=== PATIENT | male | born 1955 | race Caucasian/White ===

== ENCOUNTER 2017-05-05 21:15 | Emergency (ER) | payer BC ==
[~2017-05-05] VITALS: Ht 185.4 cm; Wt 113.0 kg
[~2017-05-05 21:15] MED LIST: ADVIL MIGRAI200 M1 PO; ALLOPURINOL100 MG PO; ASPIRIN LOW DOS81 M2 PO; AUGMENTIN875TAB PO; BACTRIM DS1 TAB PO; BAYER ASPIRIN325 MG PO; BENAZEPRIL5 M2 PO; CLINDAMYCIN300 M1 PO; CLOPIDOGREL75 MG PO; GLYBURID MCR6 MG OR; GLYBURIDE5 MG PO; IBUPROFEN200 M1 OR; LEVEMIR FL100 UNIT/M SC; LEVEMIR FLEXPEN SC; LIPITOR40 M1 PO; LISINOP/HCTZ1 TA2 PO; LORTAB 5/3255 MG PO; LORTAB5 PO; METFORMIN1000 MG PO; MICRONASE5 MG PO; MITIGARE0.6 MG PO; NAPROSYN500 MG PO; ONDANSETRON HCL4 MG PO; PAROXETINE20 MG PO; ROCEPHIN1 G1 IV; TYLENOL # 31 TA1 PO; WARFARIN6 MG PO; [UNRECOGNIZED DRUG - REMARK]
[2017-05-05] MEDS ORDERED: TOPROL XL PO (22:00)
[2017-05-05] MEDS ORDERED: ACCUPRIL5 MG PO (22:01)
[2017-05-05] MEDS ORDERED: HYDROCHLOROT12.5 MG PO (22:02)
[2017-05-05] MEDS ORDERED: LISINOPRIL20 MG PO (22:02)
[2017-05-05] MEDS ORDERED: AMLODIPINE5 MG PO (22:03)
[2017-05-05] MEDS ORDERED: ALLOPURINOL300 MG PO (22:05)
[2017-05-05] MEDS ORDERED: ATORVASTATIN CA40 MG PO (22:05)
[2017-05-05] MEDS ORDERED: PLAVIX75 MG PO (22:06)
[2017-05-05 22:20] VITALS: BP 146/78
== END 2017-05-05 22:20 | disposition home or self-care (01) | DRG 921 ==
LOC: ED 21:15
DX: L76.21 Postprocedural hemorrhage of skin and subcutaneous tissue following a dermatologic procedure (principal)

== ENCOUNTER 2018-09-29 09:40 | Outpatient (RCR) | payer MEDICARE ==
[2018-09-09 11:38] VITALS: BP 150/76
[2018-09-10 09:03] VITALS: BP 168/74
[2018-09-11 09:33] VITALS: BP 178/84
[2018-09-12 12:43] VITALS: BP 146/69
[2018-09-13 11:25] VITALS: BP 118/61
[2018-09-14 13:47] VITALS: BP 149/80
[2018-09-15 12:06] VITALS: BP 136/83
[2018-09-16 10:55] VITALS: BP 118/74
[2018-09-17 10:00] VITALS: BP 136/76
[2018-09-18 09:47] VITALS: BP 144/61
[2018-09-19 14:04] VITALS: BP 129/72
[2018-09-20 10:13] VITALS: BP 134/64
[2018-09-21 10:58] VITALS: BP 154/77
[2018-09-22 12:19] VITALS: BP 147/78
[2018-09-23 10:48] VITALS: BP 141/75
[2018-09-24 09:50] VITALS: BP 120/64
[2018-09-25 09:34] VITALS: BP 133/69
[2018-09-26 12:49] VITALS: BP 138/68
[2018-09-27 09:35] VITALS: BP 150/65
[2018-09-28 13:45] VITALS: BP 131/74
[~2018-09-29 09:40] MED LIST changes: +ACCUPRIL5 MG PO; +ALLOPURINOL300 MG PO; +AMLODIPINE5 MG PO; +ATORVASTATIN CA40 MG PO; +HYDROCHLOROT12.5 MG PO; +LISINOPRIL20 MG PO; +PLAVIX75 MG PO; +TOPROL XL PO
[2018-09-29 14:47] VITALS: BP 136/72
== END 2018-09-29 10:00 | disposition home or self-care (01) ==
LOC: INF 09:40
PROVIDERS: ATTEND Internal Medicine
DX: E11.621 Type 2 diabetes mellitus with foot ulcer (principal)

== ENCOUNTER → 2018-10-05 | Outpatient (REF) | payer MEDICARE ==
[2018-10-05 09:33] LABS: IMMATURE GRANULOCYTES 0.3 % (0.0-5.0); MEAN CELL VOLUME 83.4 fL CALC (80.0-100.0); MEAN CORPUSCULAR HGB CONC 34.8 g/L CALC (32.0-36.0); NEUT# 5.11 thou/uL (1.82-7.42); RED BLOOD COUNT 4.82 mill/uL (4.70-6.10); RED CELL DISTRI WIDTH 12.8 % (11.5-15.5)
[2018-10-05 09:38] LABS: HEMATOCRIT 40.2 % (39.0-50.0)
== END | disposition home or self-care (01) ==
LOC: INF 09:00
PROVIDERS: ATTEND Internal Medicine Infectious Disease
DX: M86.672 Other chronic osteomyelitis, left ankle and foot (principal); B95.61 Methicillin susceptible Staphylococcus aureus infection as the cause of diseases classified elsewhere

== ENCOUNTER 2019-07-24 17:20 | Emergency (ER) | payer MEDICARE, MEDICAID ==
[~2019-07-24] VITALS: Ht 182.9 cm; Wt 90.0 kg
[2019-07-24 18:11] LABS: IMMATURE GRANULOCYTES 0.7 % (0.0-5.0); MEAN CORPUSCULAR HGB 27.6 pG CALC (26.0-32.0); MEAN CORPUSCULAR HGB CONC 32.8 g/L CALC (32.0-36.0); NEUT# 7.3 thou/uL (1.82-7.42); RED BLOOD COUNT 2.94 mill/uL (4.70-6.10); RED CELL DISTRI WIDTH 13.5 % (11.5-15.5)
[2019-07-24 18:25] LABS: HEMATOCRIT 24.7 % (39.0-50.0); HEMOGLOBIN 8.1 g/dl (14.0-18.0)
[2019-07-24 18:37] LABS: ALBUMIN 3.6 g/dL (3.2-5.0); TOTAL PROTEIN 6.7 g/dL (6.3-8.2)
[2019-07-24 18:39] LABS: BILIRUBIN, TOTAL 0.9 mg/dL (0.0-1.4); POTASSIUM 4.9 mmol/l (3.5-5.1)
[2019-07-24 18:40] LABS: CREATININE 5.4 mg/dL (0.7-1.3)
[2019-07-24 20:32] VITALS: BP 103/63
== END 2019-07-24 20:32 | disposition short-term general hospital (02) ==
LOC: ED 17:20
PROVIDERS: Family Medicine
DX: A41.9 Sepsis, unspecified organism (principal); R65.20 Severe sepsis without septic shock; N17.9 Acute kidney failure, unspecified; J18.9 Pneumonia, unspecified organism; E11.9 Type 2 diabetes mellitus without complications; Z79.4 Long term (current) use of insulin
CPT/HCPCS: J1644

== ENCOUNTER 2019-08-04 | Emergency (ER) | payer MEDICARE ==
[2019-08-04 18:38] LABS: HEMATOCRIT 27.4 % (39.0-50.0); HEMOGLOBIN 8.6 g/dl (14.0-18.0); IMMATURE GRANULOCYTES 0.8 % (0.0-5.0); MEAN CELL VOLUME 85.4 fL CALC (80.0-100.0); MEAN CORPUSCULAR HGB 26.8 pG CALC (26.0-32.0); MEAN CORPUSCULAR HGB CONC 31.4 g/L CALC (32.0-36.0); NEUT# 8.77 thou/uL (1.82-7.42); RED BLOOD COUNT 3.21 mill/uL (4.70-6.10); RED CELL DISTRI WIDTH 16.3 % (11.5-15.5)
[2019-08-04 18:46] LABS: ALBUMIN 3.8 g/dL (3.2-5.0); TOTAL PROTEIN 6.9 g/dL (6.3-8.2)
[2019-08-04 18:53] LABS: BILIRUBIN, TOTAL 1.5 mg/dL (0.0-1.4); CREATININE 3.1 mg/dL (0.7-1.3); D-DIMER 1.9 mg/L (0.19-0.60); INTERNATIONAL NORMALIZED RATIO 1.2 RATIO (0.7-1.3)
[2019-08-04] MEDS ORDERED: ALLOPURINOL100 MG PO (19:49)
[2019-08-04] MEDS ORDERED: PANTOPRAZOLE SO40 M1 PO (19:50)
[2019-08-04] MEDS ORDERED: KAPSPARGO SPRIN25 MG PO (19:55)
[2019-08-04] MEDS ORDERED: ASPIRIN 8181 MG PO (19:56)
[2019-08-04] MEDS ORDERED: LIPITOR40 M1 PO (19:56)
[2019-08-04] MEDS ORDERED: LASIX 40 MG TAB40 MG PO (20:02)
[2019-08-04] MEDS ORDERED: PLAVIX75 MG PO (20:02)
[2019-08-04] MEDS ORDERED: PAROXETINE20 MG PO (20:03)
[2019-08-04 20:25] LABS: URINE BILIRUBIN - DIPSTICK NEGATIVE (NEGATIVE); URINE BLOOD DIPSTICK TRACE-INTACT (NEGATIVE); URINE COLOR YELLOW; URINE GLUCOSE - DIPSTICK NEGATIVE (NEGATIVE); URINE KETONE NEGATIVE (NEGATIVE); URINE LEUK ESTERASE NEGATIVE (NEGATIVE); URINE NITRITE - DIPSTICK NEGATIVE (Negative); URINE PH 5.5 (4.5-8.0); URINE PROTEIN - DIPSTICK 100 mg/dL (NEG-TRACE); URINE SPECIFIC GRAVITY 1.025; URINE UROBILINOGEN - DIPSTICK 0.2 E.U./dL (0.2)
[2019-08-04 20:40] LABS: URINE RBC 0-2 RBC/hpf (0-5)
== END 2019-08-04 22:05 ==
DX: I22.2 Subsequent non-ST elevation (NSTEMI) myocardial infarction (principal); I21.4 Non-ST elevation (NSTEMI) myocardial infarction; J18.9 Pneumonia, unspecified organism; N17.9 Acute kidney failure, unspecified; E11.9 Type 2 diabetes mellitus without complications; Z95.5 Presence of coronary angioplasty implant and graft; Z91.19 Patient's noncompliance with other medical treatment and regimen
CPT/HCPCS: J1644

== ENCOUNTER 2019-08-26 | Emergency (ER) | payer MEDICARE ==
[~2019-08-26] MED LIST changes: +ASPIRIN 8181 MG PO; +KAPSPARGO SPRIN25 MG PO; +LASIX 40 MG TAB40 MG PO; +PANTOPRAZOLE SO40 M1 PO
[2019-08-26 01:23] LABS: HEMATOCRIT 25.1 % (39.0-50.0); HEMOGLOBIN 7.7 g/dl (14.0-18.0); IMMATURE GRANULOCYTES 0.3 % (0.0-5.0); MEAN CORPUSCULAR HGB 27.9 pG CALC (26.0-32.0); MEAN CORPUSCULAR HGB CONC 30.7 g/L CALC (32.0-36.0); NEUT# 3.87 thou/uL (1.82-7.42); RED BLOOD COUNT 2.76 mill/uL (4.70-6.10)
[2019-08-26 01:28] LABS: MEAN CELL VOLUME 90.9 fL CALC (80.0-100.0)
[2019-08-26 01:40] LABS: ALBUMIN 3.3 g/dL (3.2-5.0); BILIRUBIN, TOTAL 0.9 mg/dL (0.0-1.4); CREATININE 2.7 mg/dL (0.7-1.3); POTASSIUM 3.6 mmol/l (3.5-5.1); TOTAL PROTEIN 5.7 g/dL (6.3-8.2)
== END 2019-08-26 01:59 | disposition home or self-care (01) ==
PROVIDERS: Family Medicine
DX: T38.3X1A Poisoning by insulin and oral hypoglycemic [antidiabetic] drugs, accidental (unintentional), initial encounter (principal); E11.649 Type 2 diabetes mellitus with hypoglycemia without coma; D64.9 Anemia, unspecified; E11.621 Type 2 diabetes mellitus with foot ulcer; L97.519 Non-pressure chronic ulcer of other part of right foot with unspecified severity; I25.2 Old myocardial infarction; Z89.431 Acquired absence of right foot; Z79.4 Long term (current) use of insulin

== ENCOUNTER 2019-08-29 12:33 | Inpatient (IN) | payer MEDICARE, MEDICAID ==
[~2019-08-29] VITALS: Ht 182.9 cm; Wt 109.8 kg
--- NOTE | 2019-08-29 12:40 | NUR ---
PT TO ROOM PER EMS
[2019-08-29 13:17] LABS: URINE BILIRUBIN - DIPSTICK NEGATIVE (NEGATIVE); URINE BLOOD DIPSTICK TRACE-INTACT (NEGATIVE); URINE COLOR YELLOW; URINE GLUCOSE - DIPSTICK NEGATIVE (NEGATIVE); URINE KETONE NEGATIVE (NEGATIVE); URINE LEUK ESTERASE NEGATIVE (NEGATIVE); URINE NITRITE - DIPSTICK NEGATIVE (Negative); URINE PH 5.5 (4.5-8.0); URINE PROTEIN - DIPSTICK 100 mg/dL (NEG-TRACE); URINE UROBILINOGEN - DIPSTICK 0.2 E.U./dL (0.2)
[2019-08-29 13:21] LABS: URINE RBC 0-2 RBC/hpf (0-5); URINE WBC 0-2 WBC/hpf (0-5)
[2019-08-29 13:24] LABS: HEMATOCRIT 25.4 % (39.0-50.0); HEMOGLOBIN 7.7 g/dl (14.0-18.0); IMMATURE GRANULOCYTES 0.4 % (0.0-5.0); MEAN CELL VOLUME 92.4 fL CALC (80.0-100.0); MEAN CORPUSCULAR HGB CONC 30.3 g/L CALC (32.0-36.0); NEUT# 3.34 thou/uL (1.82-7.42); RED BLOOD COUNT 2.75 mill/uL (4.70-6.10); RED CELL DISTRI WIDTH 18.6 % (11.5-15.5)
[2019-08-29 13:32] LABS: ALBUMIN 3.5 g/dL (3.2-5.0); ALKALINE PHOSPHATASE 87 u/l (38-126); ANION GAP 16 (6-22 (CALC)); BILIRUBIN, TOTAL 1.2 mg/dL (0.0-1.4); BUN 51 mg/dL (8-23); BUN/CREATININE RATIO 22 (12-20 (CALC)); CARBON DIOXIDE 19 mmol/l (22-30); CHLORIDE 110 mmol/l (95-108); CREATININE 2.4 mg/dL (0.7-1.3); GFR 27 ML/MIN (>=60 (CALC)); GFR FOR AFR.AMER. 33 ML/MIN (>=60 (CALC)); POTASSIUM 4.3 mmol/l (3.5-5.1); SGOT/AST 32 u/l (19-48); SODIUM 141 mmol/l (137-146); TOTAL PROTEIN 6.3 g/dL (6.3-8.2)
--- NOTE | 2019-08-29 13:40 | NUR ---
PT RESTING ON STRETCHER; NO S/S OF DISTRESS NOTED; VSS; O2 NC IN PLACE; PT ADVISED OF WAIT TIME; WILL CONTINUE TO MONTIOR
[2019-08-29 14:05] LABS: INTERNATIONAL NORMALIZED RATIO 1.2 RATIO (0.7-1.3)
--- NOTE | 2019-08-29 14:40 | NUR ---
PT MEDICATED PER MAR FOR COUGH; DR REINA AT BEDSIDE; ADVISED OF POC AND CONTINUED WAIT TIME
--- NOTE | 2019-08-29 15:30 | NUR ---
PT ASSITED WITH URINAL, 250 ML OF CLEAR YELLOW URINE NOTED; MONITORING DEVICES IN PLACE; VSS; WILL CONTINUE TO MONITOR
[2019-08-29] MEDS ORDERED: BUMETANIDE2 MG PO (16:25)
[2019-08-29] MEDS ORDERED: TOPROL XL25 MG PO (16:25)
[2019-08-29] MEDS ORDERED: CARVEDILOL6.25 MG PO (16:25)
--- NOTE | 2019-08-29 16:30 | NUR ---
PT ASSISTED WITH URINAL AT THIS TIME; 200ML OF CLEAR YELLOW URINE AT THIS TIME; VSS; ADVISED OF CONTINUED WAIT TIME; WILL CONTINUE TO MONITOR
--- NOTE | 2019-08-29 17:30 | NUR ---
Admission Note Report Given to: MELANY PHILLIP Transported by: Wheelchair X Stretcher Transported with: X Nurse Transporter X Patent IV X O2 X Mid Wife Location: ICU X MS2
[2019-08-29 18:14] VITALS: BP 123/58
--- NOTE | 2019-08-29 18:16 | NUR ---
REPORT RECEIVED FROM JARAD IN ED, PT TRANSPORTED TO UNIT VIA STRETCHER BY ED STAFF, AMBULATED TO STANDING SCALE THEN TO BED WHERE HE WAS SETTLED. ALERT AND ORIENTED X 3, DENIES PAIN AT THIS TIME, TELE MONITOR IN PLACE, O2 @ 2L IN PLACE. ORIENTED TO ROOM AND CALL DANIELS, WILL CONTINUE TO MONITOR.
--- NOTE | 2019-08-29 18:50 | NUR ---
REPORT RECEIVED FROM MELANY PHILLIP. PT RESTING IN BED FAMILY AT BEDSIDE. NO S.S OF DISTRESS AT THIS TIME. WILL CONTINUE TO MONITOR.
[2019-08-29 19:02] VITALS: BP 146/66
--- NOTE | 2019-08-29 20:15 | NUR ---
PT RESTING IN BED. ALERT AND ORIENTED. PT RESPIRATIONS LABORED ON O2 @ 2L VIA NC. LUNG SOUND DIMINISHED. PEDAL PULSES ARE WEAK. PT DENIES ANY PAIN OR DISCOMFORT AT THIS TIME. TELE IN PLACE. SAFETY PRECAUTIONS IN PLACE. WILL CONTINUE MONITOR.
--- NOTE | 2019-08-30 00:05 | NUR ---
PT RESTING IN BED. NO S/S OF DISTRESS AT THIS TIME. TELE IN PLACE. CALL DANIELS WITHIN REACH. WILL CONTINUE TO MONITOR.
[2019-08-30 03:40] VITALS: BP 109/55
--- NOTE | 2019-08-30 04:36 | NUR ---
PT RESTING IN BED. NO S/S OF DISTRESS AT THIS TIME. SAFETY PRECAUTIONS IN PLACE. WILL CONTINUE TO MONITOR.
[2019-08-30 06:16] LABS: HEMATOCRIT 26.4 % (39.0-50.0); IMMATURE GRANULOCYTES 0.4 % (0.0-5.0); MEAN CELL VOLUME 91.7 fL CALC (80.0-100.0); MEAN CORPUSCULAR HGB 27.8 pG CALC (26.0-32.0); MEAN CORPUSCULAR HGB CONC 30.3 g/L CALC (32.0-36.0); NEUT# 3.59 thou/uL (1.82-7.42); RED BLOOD COUNT 2.88 mill/uL (4.70-6.10); RED CELL DISTRI WIDTH 18.6 % (11.5-15.5)
[2019-08-30 06:24] LABS: CREATININE 2.3 mg/dL (0.7-1.3); MAGNESIUM 1.8 mg/dL (1.6-2.3); POTASSIUM 4.2 mmol/l (3.5-5.1)
--- NOTE | 2019-08-30 07:00 | NUR ---
SHIFT CHANGE REPORT, PT AWAKE ALERT AND ORIENTED, ASSISTED WITH BRP THEN SAT UP AT BEDSIDE, STATED HE IS FEELEIN AND BREATHING MUCH BETTER THIS AM AND IS READY FOR MEAL, O2 @ 2L VIA NC IN PLACE, TELE MONITOR IN PLACE, CALL DANIELS IN REACH.
[2019-08-30 07:58] VITALS: BP 139/82
[2019-08-30 11:20] VITALS: BP 137/70
--- NOTE | 2019-08-30 12:00 | NUR ---
DR HOBSON ROUNDED, REMOVED DRESSING FROM LEFT FOOT, CLEANED WOUND AND REDRESSED, WROTE ORDERS.
--- NOTE | 2019-08-30 15:19 | NUR ---
S: CAMPOS SAM is a 64 M who presents with diabetic foot ulcer and SOB . He has a history of T2DM, gout, HTN, and PAOD. All medications in patient's chart were reviewed. O: VS: BP: 137/70 mmHg, P: 87 beats/min, RR: 20 breaths/min, T: 98.3 F W: 109 kg, HT: 72 in, Scr: 2.3 mg/dL, CrCl: 40 ml/min A: Blood culture is pending. Stool culture for ESBL surveillance is pending. hx of ESBL in past years P: Patient is on azithromycin 500 mg IV Q24H and cefepime 1 gm IV Q12H. Vancomycin ordered for pharmacy to dose. Start Vancomycin 1500 mg IV Q24H. Vancomycin trough is drawn before the 4th dose on 09/02/19 at 15:30. Vancomycin goal trough is between 10-15 mcg/ml. Pharmacy will follow and or advise on antibiotics use as needed.
--- NOTE | 2019-08-30 16:00 | NUR ---
PT DOWN FOR PROCEDURES AFTER BEING INFORMED, THEN BACK TO UNIT AND SETTLED IN BED, ALL NEEDS ADDRESSED.
[2019-08-30 17:05] VITALS: BP 134/67
--- NOTE | 2019-08-30 18:43 | NUR ---
REPORT RECEIVED FORM ALEXANDER IN ED, PT TRANSPORTED TO UNIT VIA STRETCHER AND TRANSFERRED TO BED WITH MAX ASSIST OR 3. ALERT AND ORIENTED X 3, DENIES DISCOMFORT, ORIENTED TO ROOM AND CALL DANIELS. PT ARRIVED ON UNIT @ 1456 TRANSPORTED BY ED STAFF. SUPRAPUBIC CATHETER IN PLACE WITH CLOUDY SEDIMENTED URINE, COLOSTOMY BAG IN PLACE TO LEFT ABD. TELE MONITOR IN PLACE, WILL CONTINUE TO MONITOR.
[2019-08-30 18:56] VITALS: BP 139/81
--- NOTE | 2019-08-30 19:10 | NUR ---
REPORT RECEIVED FROMMARJAN RN. PT RESTING IN BED. NO S.S OF DISTRESS AT THIS TIME.
--- NOTE | 2019-08-30 20:21 | NUR ---
PT ALERT AND ORIENTED. RESPIRATIONS EVEN AND UNLABORED. LUNGS SOUND CLEAR. PEDAL PULSES WEAK. TELE IN PLACE. PT DENIES ANY NEED AT THIS TIME. SAFETY PRECAUTIONS IN PLACE. WILL CONTINUE TO MONITOR.
[2019-08-30 23:13] VITALS: BP 139/79
--- NOTE | 2019-08-31 00:05 | NUR ---
PT RESTING IN BED RESPIRATIONS EVEN AND UNLABORED. NO S/S OF DISTRESS AT THIS TIME. SAFETY PRECAUTIONS IN PLACE. WILL CONTINUE TO MONITOR.
--- NOTE | 2019-08-31 04:00 | NUR ---
PT ASSISTED INTO BED AND REPOSISTED. COVERED PT WITH BLANKETS PER REQUEST. TELE IN PLACE. WILL CONTINUE TO MONITOR.
[2019-08-31 04:43] VITALS: BP 146/89
[2019-08-31 05:25] LABS: HEMATOCRIT 25.8 % (39.0-50.0); HEMOGLOBIN 7.8 g/dl (14.0-18.0); IMMATURE GRANULOCYTES 0.2 % (0.0-5.0); MEAN CELL VOLUME 91.8 fL CALC (80.0-100.0); MEAN CORPUSCULAR HGB 27.8 pG CALC (26.0-32.0); MEAN CORPUSCULAR HGB CONC 30.2 g/L CALC (32.0-36.0); NEUT# 2.74 thou/uL (1.82-7.42); RED BLOOD COUNT 2.81 mill/uL (4.70-6.10); RED CELL DISTRI WIDTH 18.2 % (11.5-15.5)
[2019-08-31 05:50] LABS: CREATININE 2.3 mg/dL (0.7-1.3); MAGNESIUM 1.8 mg/dL (1.6-2.3)
[2019-08-31 08:18] VITALS: BP 108/47
--- NOTE | 2019-08-31 08:57 | NUR ---
CALLED DR. RAHMAN OFFICE SPOKE TO LETICIA GAVE INFORMATION REGARDING DR. BEARD CONSULTATION. STATED SHE WILL GIVE HIM THE MESSAGE AND COME SEE THE PATIENT.
--- NOTE | 2019-08-31 09:34 | NUR ---
DR. HOBSON IN TO SEE PT; PLAN OF CARE DISCUSSED; ORDERS RECEIVED
[2019-08-31 11:10] VITALS: BP 110/55
--- NOTE | 2019-08-31 11:14 | NUR ---
PHYSICAL THERAPY IN WITH PT
--- NOTE | 2019-08-31 11:59 | NUR ---
DR. CORONEL IN TO SEE PT; PLAN OF CARE DISCUSSED; CALL DANIELS WITHIN REACH; WILL CONTINUE TO MONITOR.
--- NOTE | 2019-08-31 13:30 | NUR ---
PT WENT FOR MRI; UNABLE TO BE PERFORMED D/T PT UNABLE TO LAY FLAT; MD NOTIFIED; WILL ATTEMPT AGAIN IN MORNING AND PREMEDICATE PT FOR PAIN; WILL CONTINUE TO MONITOR.
[2019-08-31 14:40] VITALS: BP 123/54
[2019-08-31] MEDS ORDERED: LEVOTHYROXINE75 MCG PO (14:53)
[2019-08-31] MEDS ORDERED: LEVEMIR FL100 UNIT/M SC (14:54)
[2019-08-31] MEDS ORDERED: PLAVIX75 MG PO (16:00)
--- NOTE | 2019-08-31 16:02 | NUR ---
PT RESTING WITH EYES CLOSED; NO S/SX OF DISTRESS NOTED; CALL DANIELS WITHIN REACH; WILL CONTINUE TO MONITOR.
--- NOTE | 2019-08-31 17:55 | NUR ---
PT ASSISTED WITH DINNER SET UP; NO COMPLAINTS OR CONCERNS VOICED; CALL DANIELS WITHIN REACH; WILL CONTINUE TO MONITOR.
[2019-08-31 19:03] VITALS: BP 130/69
[2019-08-31 23:47] VITALS: BP 125/80
[2019-09-01 03:29] VITALS: BP 125/75
[2019-09-01 05:58] LABS: HEMATOCRIT 26.6 % (39.0-50.0); HEMOGLOBIN 8.1 g/dl (14.0-18.0); IMMATURE GRANULOCYTES 0.4 % (0.0-5.0); MEAN CELL VOLUME 91.7 fL CALC (80.0-100.0); MEAN CORPUSCULAR HGB 27.9 pG CALC (26.0-32.0); MEAN CORPUSCULAR HGB CONC 30.5 g/L CALC (32.0-36.0); NEUT# 3.47 thou/uL (1.82-7.42); RED BLOOD COUNT 2.9 mill/uL (4.70-6.10); RED CELL DISTRI WIDTH 18.3 % (11.5-15.5)
[2019-09-01 06:08] LABS: CREATININE 2.4 mg/dL (0.7-1.3); MAGNESIUM 1.9 mg/dL (1.6-2.3); POTASSIUM 3.9 mmol/l (3.5-5.1)
--- NOTE | 2019-09-01 06:09 | NUR ---
PT CONT ON 2L O2 NC, PT HAS AUDIBLE CONGESTION AND NON-PRODUCTIVE COUGH. PT RECEIVING LASIX BID. 22G RIGHT POSTERIER FOREARM IV REMAINS PATENT AND INTACT. PT STATES HAVING NO PAIN, 0/10 ON PAIN SCALE.
--- NOTE | 2019-09-01 08:00 | NUR ---
PT SITTING ON SIDE OF BED. DENIES PAIN. REPORTING OF CONCERNS ENCOURAGED. CALL LIGHT REVIEWED AND IN REACH. FALL PRECAUTIONS REINFORCED. O2 @ 2L VIA NC. PLAN OF CARE DISCUSSED. PT ALERT AND ORIENTED. #22 LFA SALINE LOCK, NO REDNESS/SWELLING.
[2019-09-01 09:56] VITALS: BP 120/53
[2019-09-01 11:33] VITALS: BP 119/68
--- NOTE | 2019-09-01 12:49 | NUR ---
AMPAC SCORE TODAY: 19 POINTS; PT WILL BENEFIT FROM [facility] FOR GAIT TRAINING AND CONDITIONING MR. GASCA WAS SEEN THIS MORNING FOR GT. HE WAS INDEP ON ALL FUNCTIONAL ACTIVITIES WITH LITTLE TO NO DIFFICULTY. HE HAD A SCOOTER THAT HE USED IN AMB IN THE HALLWAY AT LEAST 60 FT X 2. NO ADVERSE REACTIONS WAS NOTED OR REPORTED AT THE END OF TX.
--- NOTE | 2019-09-01 13:30 | NUR ---
DR. COBB IN TO SEE PT. PLAN OF CARE UPDATED.
[2019-09-01 15:35] VITALS: BP 118/66
--- NOTE | 2019-09-01 17:00 | NUR ---
DR. SOTO IN TO SEE PT. AT THIS TIME.
--- NOTE | 2019-09-01 19:55 | NUR ---
PT RESTING IN BED. RESPIRATION EVEN AND UNLABORED ON O2 @ 2L VIA NC. LUNGS SOUND DIMINISHED. PEDAL PULSES WEAK. PT DENIES ANY PAIN OR DISCOMFORT AT THIS TIME. TELE IN PLACE. WILL CONTINUE TO MONITOR.
[2019-09-01 20:00] VITALS: BP 111/64
--- NOTE | 2019-09-01 20:52 | NUR ---
DRESSING CHANGED PER ORDER. PT TOLERATED WELL. ASSISTED PT WITH REPOSITIONING IN BED. URINAL EMPITED AT THIS TIME.
[2019-09-02] VITALS: BP 115/62
--- NOTE | 2019-09-02 00:15 | NUR ---
PT PROVIDED WITH SALTINE CRACKERS AND GINGERALE PER REQUEST.
[2019-09-02 04:00] VITALS: BP 136/80
--- NOTE | 2019-09-02 04:16 | NUR ---
PT RESTING IN BED. RESPIRATIONS EVEN AND UNLABORED ON O2 @ 2L VIA NC. SAFETY PRECAUTIONS IN PLACE. WILL CONTINUE TO MONITOR.
[2019-09-02 05:10] LABS: HEMATOCRIT 25.3 % (39.0-50.0); HEMOGLOBIN 7.6 g/dl (14.0-18.0); IMMATURE GRANULOCYTES 0.4 % (0.0-5.0); MEAN CORPUSCULAR HGB 27.3 pG CALC (26.0-32.0); NEUT# 3.37 thou/uL (1.82-7.42); RED BLOOD COUNT 2.78 mill/uL (4.70-6.10); RED CELL DISTRI WIDTH 17.8 % (11.5-15.5)
[2019-09-02 05:35] LABS: CREATININE 2.3 mg/dL (0.7-1.3); POTASSIUM 4.1 mmol/l (3.5-5.1)
[2019-09-02 08:00] VITALS: BP 113/56
--- NOTE | 2019-09-02 10:00 | NUR ---
PT ALERT AND ORIENTED X 3. LUNGS CLEAR, 2 LPM. NO DISTRESS HE SITS UP IN THE BED.
[2019-09-02 16:41] VITALS: BP 104/58
[2019-09-02 18:00] LABS: C-REACTIVE PROTEIN 3.5 mg/dL (0-0.9); CREATININE 2.3 mg/dL (0.7-1.3)
--- NOTE | 2019-09-02 18:28 | NUR ---
PT SITTING UP IN THE BED, FEET DANGLING. NO CHANGE IN STATUS, NO COMPLAINTS HEARD.
[2019-09-02 19:00] VITALS: BP 112/56
--- NOTE | 2019-09-02 19:10 | NUR ---
REPORT RECEIVED FROM MELANY MAC. PT RESTING IN BED. NO S/S OF DISTRESS AT THIS TIME. WILL CONITNUE TO MONITOR.
--- NOTE | 2019-09-02 21:45 | NUR ---
PT RESTING IN BED. RESPIRATIONS EVEN AND UNLABORED ON O2 @ 2L VIA NC. LUNGS SOUND DIMINISHED. PEDAL PULSES WEAK. PT DENIES ANY PAIN OR DISCOMFORT AT THIS TIME. SAFETY PRECAUTIONS IN PLACE. WILL CONTNIUE TO MONITOR.
[2019-09-03] VITALS: BP 110/50
--- NOTE | 2019-09-03 00:15 | NUR ---
PT RESTING BED RESPIRATIONS EVEN AND UNLABORED ON O2 @ 2L VIA NC. NO S/S OF DISTRESS AT THIS TIME. WILL CONTINEU TO MONTIOR.
[2019-09-03 04:00] VITALS: BP 152/87
--- NOTE | 2019-09-03 04:30 | NUR ---
PT NOSE BLEEDING. PT PROVIDED WITH WASH CLOTH. WILL CONTINUE TO MONITOR.
[2019-09-03 05:42] LABS: HEMOGLOBIN 7.5 g/dl (14.0-18.0); MEAN CELL VOLUME 92.6 fL CALC (80.0-100.0); MEAN CORPUSCULAR HGB 27.8 pG CALC (26.0-32.0); RED BLOOD COUNT 2.7 mill/uL (4.70-6.10); RED CELL DISTRI WIDTH 17.4 % (11.5-15.5)
[2019-09-03 06:01] LABS: CREATININE 2.4 mg/dL (0.7-1.3)
[2019-09-03 07:45] VITALS: BP 117/67
--- NOTE | 2019-09-03 09:51 | NUR ---
PT SITS UP IN BED, DANGLING FEET OFF BED. PT IS ALERT AND ORIENTED X 3. LUNGS WITH CRACKLES TO LEFT BASE, OTHERWISE CLEAR, 2 LPM NC. PT REQUESTING STOOL SOFTENER PER NO BM SINCE ARRIVAL. VSS.
--- NOTE | 2019-09-03 13:09 | NUR ---
PT REMAINS BEFORE, SITTING UP IN THE BED, SOMETIMES NAPPING, NO EVIDENCE OF DISTRESS.
[2019-09-03 15:00] VITALS: BP 100/59
--- NOTE | 2019-09-03 16:27 | NUR ---
PT SEEN RECLINING IN BED, EYES CLOSED, NO DISTRESS NOTED.
--- NOTE | 2019-09-03 19:05 | NUR ---
REPORT RECEIVED FROM MELANY MAC. PT RESTING IN BED. NO S/S OF DISTRESS AT THIS TIME. SAFETY PRECAUTIONS IN PLACE. WILL CONTINUE TO MONITOR.
[2019-09-03 20:22] VITALS: BP 128/74
--- NOTE | 2019-09-03 22:30 | NUR ---
PT RESTING IN BED, ALERT AND ORIENTED. RESPIRATIONS EVEN AND UNLABORED ON O2 @ 2L VIA NC. PEDAL PULSES WEAK. PT DENIES ANY PAIN OR DISCOMFORT. #22 RFA PATENT AND APPEARS HEALTHY. PT ASSISTED TO THE BATHROOM PER REQUEST. PT ENCOURAGED TO CALL FOR ASSISTANCE WHEN FINISHED.
--- NOTE | 2019-09-04 00:10 | NUR ---
PT ASSISTED INTO BED AND COVERED WITH BLANKETS PER REQUEST. SAFETY PRECAUTIONS IN PLACE. WILL CONTINUE TO MONTIOR.
[2019-09-04 03:07] VITALS: BP 129/75
--- NOTE | 2019-09-04 05:16 | NUR ---
PT RESTING IN BED ON LEFT SIDE APPEARS TO BE SLEEPING. NO S/S OF DISTRESS AT THIS TIME.
[2019-09-04 05:29] LABS: HEMATOCRIT 25.5 % (39.0-50.0); HEMOGLOBIN 7.7 g/dl (14.0-18.0); MEAN CELL VOLUME 90.7 fL CALC (80.0-100.0); MEAN CORPUSCULAR HGB 27.4 pG CALC (26.0-32.0); MEAN CORPUSCULAR HGB CONC 30.2 g/L CALC (32.0-36.0); RED BLOOD COUNT 2.81 mill/uL (4.70-6.10); RED CELL DISTRI WIDTH 17.2 % (11.5-15.5)
[2019-09-04 05:33] LABS: CREATININE 2.4 mg/dL (0.7-1.3); MAGNESIUM 2.1 mg/dL (1.6-2.3); POTASSIUM 4.2 mmol/l (3.5-5.1)
[2019-09-04 09:34] VITALS: BP 111/60
--- NOTE | 2019-09-04 09:34 | NUR ---
Pt seen for treatment this am. He was resting in L side lying. He reported doing ex in bed and sitting over edge of bed. Standing balance with walker practiced, but pt only able to stand approx 1 min before requesting to sit. Transfers to and from scooter with CGA and reminder not to Wt bear on L forefoot. Pt having difficulty due to habit of being NWB on R for a long time and does not automatically position self of NWB on L. Scoot 2x 60' with CGA and 2L [address] 02 sats 92% and desat to 88% after scoot use with 92% after rest. AMPAC unchanged.
[2019-09-04 09:54] VITALS: BP 111/60
[2019-09-04] MEDS ORDERED: LEVAQUIN750 MG PO (14:46)
[2019-09-04] MEDS ORDERED: LEXAPRO10 MG PO (14:46)
[2019-09-04] MEDS ORDERED: LORTAB5 PO (15:37)
--- NOTE | 2019-09-04 18:36 | NUR ---
PATIENT WAS DISCHARGE TO THE [facility]. PATIENT WAS ACCOMPANIED BY THE REHAB EMPLOYEE. PATIENT DENIED OF HAVING PAIN OR DISCOMFORT AT THIS TIME. DISCHARGE INSTRUCTION WAS GIVEN TO PATIENT AND REHAB STAFF.
== END 2019-09-04 18:41 | DRG 291 ==
LOC: ED 12:33 → ED-I 15:00 → ED 15:09 → MS2 15:10
PROVIDERS: Internal Medicine Infectious Disease; Nurse Practitioner Family; ADMIT Internal Medicine; ATTEND Internal Medicine
DX: I13.0 Hypertensive heart and chronic kidney disease with heart failure and stage 1 through stage 4 chronic kidney disease, or unspecified chronic kidney disease (principal); J18.9 Pneumonia, unspecified organism; J96.01 Acute respiratory failure with hypoxia; T25.332A Burn of third degree of left toe(s) (nail), initial encounter; N17.9 Acute kidney failure, unspecified; L97.528 Non-pressure chronic ulcer of other part of left foot with other specified severity; L03.116 Cellulitis of left lower limb; J44.0 Chronic obstructive pulmonary disease with (acute) lower respiratory infection; N18.4 Chronic kidney disease, stage 4 (severe); I50.9 Heart failure, unspecified; E11.22 Type 2 diabetes mellitus with diabetic chronic kidney disease; I25.10 Atherosclerotic heart disease of native coronary artery without angina pectoris; E11.42 Type 2 diabetes mellitus with diabetic polyneuropathy; E11.65 Type 2 diabetes mellitus with hyperglycemia; E11.621 Type 2 diabetes mellitus with foot ulcer; D63.1 Anemia in chronic kidney disease; F40.240 Claustrophobia; M10.9 Gout, unspecified; G31.84 Mild cognitive impairment of uncertain or unknown etiology; F32.9 Major depressive disorder, single episode, unspecified; I25.2 Old myocardial infarction; B96.5 Pseudomonas (aeruginosa) (mallei) (pseudomallei) as the cause of diseases classified elsewhere; W29.2XXA Contact with other powered household machinery, initial encounter; Z89.431 Acquired absence of right foot; Z87.891 Personal history of nicotine dependence; Z87.01 Personal history of pneumonia (recurrent); Z95.5 Presence of coronary angioplasty implant and graft; Z95.820 Peripheral vascular angioplasty status with implants and grafts; Z23 Encounter for immunization
CPT/HCPCS: G0378; J0692; J3370

== ENCOUNTER 2019-10-16 12:54 | Inpatient (IN) | payer MEDICARE, MEDICAID ==
[~2019-10-16] VITALS: Ht 185.4 cm; Wt 104.3 kg
[~2019-10-16 12:54] MED LIST changes: +BUMETANIDE2 MG PO; +CARVEDILOL6.25 MG PO; +LEVAQUIN750 MG PO; +LEVOTHYROXINE75 MCG PO; +LEXAPRO10 MG PO; +TOPROL XL25 MG PO
--- NOTE | 2019-10-16 12:55 | NUR ---
PT ARRIVES VIA EMS IN NO DISTRESS, SKIN VERY PALE. PT C/O "PT SAID MY SATS WERE LOW". PT DENIES SOB,CP OR COUGH
--- NOTE | 2019-10-16 13:10 | NUR ---
ABG DRAWN AND PATIENT PLACED ON O2 AT 2L/MIN VIA NASAL CANNULA BY RT.
[2019-10-16 13:56] LABS: HEMATOCRIT 24.2 % (39.0-50.0); HEMOGLOBIN 7.5 g/dl (14.0-18.0); IMMATURE GRANULOCYTES 0.8 % (0.0-5.0); MEAN CELL VOLUME 88.3 fL CALC (80.0-100.0); MEAN CORPUSCULAR HGB 27.4 pG CALC (26.0-32.0); NEUT# 6.68 thou/uL (1.82-7.42); RED BLOOD COUNT 2.74 mill/uL (4.70-6.10); RED CELL DISTRI WIDTH 16.9 % (11.5-15.5)
--- NOTE | 2019-10-16 14:05 | NUR ---
PATIENT ASSISTED TO BSC STATES BEING CONSTIPATED LAST BM YESTERADAY. CALL LIGHT WITHIN REACH. WILL CONTINUE TO MONITOR.
[2019-10-16 14:25] LABS: ALBUMIN 3.5 g/dL (3.2-5.0); ANION GAP 14 (6-22 (CALC)); BUN 71 mg/dL (8-23); BUN/CREATININE RATIO 22 (12-20 (CALC)); CARBON DIOXIDE 26 mmol/l (22-30); CHLORIDE 101 mmol/l (95-108); CREATININE 3.2 mg/dL (0.7-1.3); GFR 20 ML/MIN (>=60 (CALC)); GFR FOR AFR.AMER. 24 ML/MIN (>=60 (CALC)); POTASSIUM 3.6 mmol/l (3.5-5.1); SODIUM 137 mmol/l (137-146); TOTAL PROTEIN 6.1 g/dL (6.3-8.2)
[2019-10-16 14:30] LABS: ALKALINE PHOSPHATASE 212 u/l (38-126); BILIRUBIN, TOTAL 2.1 mg/dL (0.0-1.4); SGOT/AST 482 u/l (19-48)
[2019-10-16 14:33] LABS: D-DIMER 2.29 mg/L (0.19-0.60); INTERNATIONAL NORMALIZED RATIO 1.4 RATIO (0.7-1.3); PROTHROMBIN TIME 14.2 SECONDS (9.0-12.5)
--- NOTE | 2019-10-16 14:55 | NUR ---
MEDICATED WITH IV LASIX ORDERED. PT HAD SMAL FIRM FORMED STOOL X1.PT IN NO DISTRESS
--- NOTE | 2019-10-16 15:29 | NUR ---
REPORT GIVEN TO MELANY KNUTSON.
--- NOTE | 2019-10-16 15:38 | NUR ---
PT ARRIVED TO UNIT VIA WHEELCHAIR WITH ER STAFF. ALERT AND ORIENTED. AMBULATED TO BED WITH STEADY GAIT; REPORTS USING A CANE AT HOME. DENIES PAIN. PLEASANT AND JOKING WITH STAFF. RESPIRATIONS EVEN AND UNLABORED ON OXYGEN 2L VIA NC. LUNGS DIMINISHED. ORIENTED TO ROOM AND CALL LIGHT SYSTEM. PLAN OF CARE DISCUSSED INCLUDING ORDER FOR BLOOD TRANSFUSION. PT ENCOURAGED TO VERBALIZE CONCERNS. STATES UNDERSTANDING AND AGREES TO SIGN CONSENT FORM. SAFETY MEASURES IN PLACE. CALL LIGHT WITHIN REACH.
[2019-10-16 15:40] VITALS: BP 127/77
--- NOTE | 2019-10-16 15:45 | NUR ---
PT TRANSPORTED TO AR ON TELE VIA WC IN N ODISTRESS
--- NOTE | 2019-10-16 16:42 | NUR ---
BLOOD TRANSFUSION STARTED AT THIS TIME. CONSENT OBTAINED AND SENT TO LAB. PT SITTING UP ON EDGE OF BED EATING SNACK. BLOOD SUGAR 87.
[2019-10-16 16:58] VITALS: BP 134/75
--- NOTE | 2019-10-16 17:25 | NUR ---
PT TOLERATING TRANSFUSION WELL; VSS. RESTING IN SEMI FOWLERS. UP TO BSC FOR SMALL HARD BOWEL MOVEMENT. PHOTO TAKEN OF DIABETIC ULCER TO LEFT GREAT TOE AND PLACED IN CHART.
[2019-10-16 17:42] LABS: URINE BILIRUBIN - DIPSTICK NEGATIVE (NEGATIVE); URINE BLOOD DIPSTICK TRACE-INTACT (NEGATIVE); URINE COLOR YELLOW; URINE GLUCOSE - DIPSTICK NEGATIVE (NEGATIVE); URINE KETONE NEGATIVE (NEGATIVE); URINE LEUK ESTERASE NEGATIVE (NEGATIVE); URINE NITRITE - DIPSTICK NEGATIVE (Negative); URINE PH 5.5 (4.5-8.0); URINE PROTEIN - DIPSTICK 100 mg/dL (NEG-TRACE); URINE UROBILINOGEN - DIPSTICK 0.2 E.U./dL (0.2)
[2019-10-16 17:45] VITALS: BP 132/75
--- NOTE | 2019-10-16 17:53 | NUR ---
URINE AND STOOL SPECIMEN COLLECTED AND SENT TO LAB.
[2019-10-16 18:10] LABS: URINE RBC 0-2 RBC/hpf (0-5); URINE WBC 0-2 WBC/hpf (0-5)
--- NOTE | 2019-10-16 18:13 | NUR ---
LAB AT BEDSIDE. MILK OF MAG GIVEN FOR CONSTIPATION. RBC'S CONTINUE TO INFUSE WITHOUT DIFFICULTY. NO S/S OF TRANSFUSION REACTION. PT PLEASANT AND TALKATIVE.
[2019-10-16 18:55] VITALS: BP 136/80
--- NOTE | 2019-10-16 19:00 | NUR ---
RECEIVED REPORT FROM NURSE EAMON PATIENT APPEARS TO BE SLEEPING WITH EYES CLOSED, REMAINS ON O2 WITH EVEN UNLABORED BREATHING CALL LIGHT AT REACH.
[2019-10-16 19:14] VITALS: BP 137/72
--- NOTE | 2019-10-16 21:00 | NUR ---
PATIENT ALERT AND ORIENTED ABLE TO MAKE NEEDS KNOWN, WITH SALINE LOCK ON LH AND SALINE LOCK ON LAC PATENT FLUSHES WELL, REMAINS ON TELE SR 72, DENIES PAIN AT THIS TIME, PATIENT DIABETIC ULCER ON LEFT GREAT TOE WITH DRESSING IN PLACE,REMAINS ON O2 @ 2LPM VIA NC WITH EVEN UNLABORED BREATHING PATIENT ASSISTED IN REPOSITIONING CALL LIGHT AT REACH.
[2019-10-16 23:35] VITALS: BP 121/72
--- NOTE | 2019-10-16 23:47 | NUR ---
PATIENT ASSISTED TO BEDSIDE COMMODE AND ASSISTED BACK IN BED.
[2019-10-17 03:32] VITALS: BP 99/65
--- NOTE | 2019-10-17 05:08 | NUR ---
PATIENT ASSISTED TO BEDSIDE COMODE, DENIES PAIN OR DISCOMFORTS AT THIS TIME, REMAINS ON O2 @ 2LPM VIA NC CALL LIGHT AT REACH.
[2019-10-17 05:56] LABS: HEMATOCRIT 26.6 % (39.0-50.0); HEMOGLOBIN 8.3 g/dl (14.0-18.0); IMMATURE GRANULOCYTES 0.4 % (0.0-5.0); MEAN CELL VOLUME 88.4 fL CALC (80.0-100.0); MEAN CORPUSCULAR HGB 27.6 pG CALC (26.0-32.0); MEAN CORPUSCULAR HGB CONC 31.2 g/L CALC (32.0-36.0); NEUT# 5.95 thou/uL (1.82-7.42); RED BLOOD COUNT 3.01 mill/uL (4.70-6.10); RED CELL DISTRI WIDTH 16.7 % (11.5-15.5)
[2019-10-17 06:07] LABS: ALBUMIN 3.3 g/dL (3.2-5.0); BILIRUBIN, TOTAL 1.8 mg/dL (0.0-1.4); CREATININE 3.2 mg/dL (0.7-1.3); TOTAL PROTEIN 5.8 g/dL (6.3-8.2)
[2019-10-17 08:07] VITALS: BP 116/68
[2019-10-17 10:30] VITALS: BP 108/64
--- NOTE | 2019-10-17 13:19 | NUR ---
CALLED AND SPOKE TO EDGARD AND LET HER KNOW ABOUT A CONSULTATION FOR DR. HOBSON FOR THIS PT.
[2019-10-17 14:40] VITALS: BP 128/74
--- NOTE | 2019-10-17 15:14 | NUR ---
LEFT GREAT TOE WOUND CULTURE ACHIEVED AND SENT TO LAB. WOUND CLEANSED WITH 3 IODINE SWABS. DRESSED WITH 4X4 AND KERLIX PER ORDER. PT TOLERATED WELL AND HAD NO PAIN WHEN CULTURE ACQUIRED. SUPPORT GIVEN.
--- NOTE | 2019-10-17 19:00 | NUR ---
RECEIVED REPORT FROM DAY NURSE PATIENT CURRENTLY RESTING IN CHAIR, FOOT ELEVATED, REMAINS ON O2 @ 2LPM VIA NC EVEN UNLABORED BREATHING CALL LIGHT AT REACH.
[2019-10-17 19:10] VITALS: BP 125/70
--- NOTE | 2019-10-17 21:00 | NUR ---
PATIENT ALERFT ORIENTED ABLE TO MAKE NEEDS KNOWN, SALINE LOCK ON LAC PATENT AND FLUSHES WELL, DENIES PAIN OR DISCOMFORT REMAINS ON TELE, ON O2 @ 2LPM VIA NC, EVEN UNLABORED BREATHING CALL LIOGHT AT REACH.
[2019-10-17 23:59] VITALS: BP 116/61
--- NOTE | 2019-10-18 | NUR ---
PATIENT APPREARS TO BE SLEEPING WITH EYES CLOSED, WITH EVEN UNLABORED BREATHING CALL LIGHT AT REACH
--- NOTE | 2019-10-18 04:21 | NUR ---
PATIENT REQUESTED SNACK AT THIS TIME, CURRENTLY SITTING IN BED WATCHING TV WITH EVEN UNLABORED BREATHING.
[2019-10-18 04:22] VITALS: BP 126/72
[2019-10-18 04:57] LABS: HEMATOCRIT 26.2 % (39.0-50.0); HEMOGLOBIN 8.1 g/dl (14.0-18.0); MEAN CELL VOLUME 88.2 fL CALC (80.0-100.0); MEAN CORPUSCULAR HGB 27.3 pG CALC (26.0-32.0); MEAN CORPUSCULAR HGB CONC 30.9 g/L CALC (32.0-36.0); RED BLOOD COUNT 2.97 mill/uL (4.70-6.10); RED CELL DISTRI WIDTH 16.8 % (11.5-15.5)
[2019-10-18 05:19] LABS: CREATININE 3.4 mg/dL (0.7-1.3); MAGNESIUM 2.4 mg/dL (1.6-2.3); POTASSIUM 4.1 mmol/l (3.5-5.1)
[2019-10-18 08:00] VITALS: BP 108/59
[2019-10-18 11:37] VITALS: BP 97/53
[2019-10-18 16:00] VITALS: BP 103/53
--- NOTE | 2019-10-18 18:21 | NUR ---
PT COMPLAINT OF LEFT NOSTRIL NOSE BLEED. SLOW BLEED NOTED. HUMIDITY ADDED TO OXYGEN, ICE PACK AND PRESSURE TO L NOSTRIL. WILL MONITOR.
--- NOTE | 2019-10-18 19:15 | NUR ---
REPORT FROM RAMOS MOSLEY. PT SITTING UP AT BEDSIDE. ALERT AND ORIENTED. PT CONSTANTLY WIPING NOSE WITH WASH CLOTH WITH ACTIVE NOSE BLEED REPORTED FROM DAY NURSE. AGRICULTURAL EXTENSION SPECIALIST ENCOURAGED PT TO HOLD PRESSURE AND STOP WIPING NOSE AT THIS TIME. IV SITE APPEARS HEALTHY. VACUUM TESTER CANS IN PLACE. DISCUSSED POC. PT VERBALIZED UNDERSTANDING. CALL LIGHT WITHIN REACH. WILL CONTINUE TO MONITOR.
[2019-10-18 19:18] VITALS: BP 118/64
--- NOTE | 2019-10-18 20:03 | NUR ---
PT NO LONGER HAS NOSE BLEED. PT NOT CURRENTLY WEARING O2. SATS 95% RA. NO APPARENT RESPIRATORY DISTRESS NOTED. PT DENIES ANY FEELING OF SOB. WILL CONTINUE TO MONITOR.
[2019-10-18 23:32] VITALS: BP 105/66
--- NOTE | 2019-10-19 01:11 | NUR ---
ASSISTED PT UP TO USE URINAL. PT VOIDED 400ML. ASSISTED BACK TO BED. SNACK PROVIDED UPON REQUEST. NO APPARENT DISTRESS NOTED. CALL LIGHT WITHIN REACH. WILL CONTINUE TO MONITOR.
[2019-10-19 04:00] VITALS: BP 120/71
--- NOTE | 2019-10-19 04:30 | NUR ---
COMPLETE BED BATH PROVIDED WITH PT ASSIST. LINENS CHANGED. PT SITTING UP IN CHAIR AT BEDSIDE. CALL LIGHT WITHIN REACH. WILL CONTINUE TO MONITOR.
[2019-10-19 05:16] LABS: HEMATOCRIT 26.1 % (39.0-50.0); MEAN CELL VOLUME 88.5 fL CALC (80.0-100.0); MEAN CORPUSCULAR HGB 27.1 pG CALC (26.0-32.0); MEAN CORPUSCULAR HGB CONC 30.7 g/L CALC (32.0-36.0); RED BLOOD COUNT 2.95 mill/uL (4.70-6.10); RED CELL DISTRI WIDTH 17.2 % (11.5-15.5)
[2019-10-19 05:41] LABS: ALBUMIN 3.3 g/dL (3.2-5.0); BILIRUBIN, TOTAL 1.6 mg/dL (0.0-1.4); CREATININE 3.1 mg/dL (0.7-1.3); MAGNESIUM 2.5 mg/dL (1.6-2.3); POTASSIUM 4.3 mmol/l (3.5-5.1); TOTAL PROTEIN 5.9 g/dL (6.3-8.2)
[2019-10-19 08:00] VITALS: BP 105/54; BP 106/61
--- NOTE | 2019-10-19 09:00 | NUR ---
PT SEEN AWAKE, ALERT, ORIENTED X 3. LUNGS CLEAR, RA. RIGHT FOOT DRESSING CHANGED PER OTHER LOOSE AND UNRAVELING. WOUND IS DRY, SCABBED OVER, NO DRAINAGE NOTED.
[2019-10-19 11:39] VITALS: BP 141/75
--- NOTE | 2019-10-19 13:00 | NUR ---
PT WITHOUT COMPLAINT HE RESTS IN THE BED, NO EVIDENCE OF DISTRESS. PT TO BSC WITHOUT RESULTS.
[2019-10-19 15:05] VITALS: BP 106/59
--- NOTE | 2019-10-19 16:53 | NUR ---
PT REMAINS BEFORE, RESTS IN THE BED IN NO DISTRESS. NO COMPLAINTS HEARD.
--- NOTE | 2019-10-19 19:05 | NUR ---
REPORT FROM BUBBA RN. PT SITTING UP AT BEDSIDE. ALERT AND ORIENTED. DISCUSSED IV SITE DUE TO BE CHANGED. DISCUSSED POC. PT VERBALIZED UNDERSTANDING. DRESSING TO LEFT FOOT, CDI. CALL LIGHT WITHIN REACH. WILL CONTINUE TO MONITOR.
[2019-10-19 19:30] VITALS: BP 137/83
--- NOTE | 2019-10-19 20:43 | NUR ---
PT MEDICATED ORDERED. NEW IV STARTED AT THIS TIME, #22 LFA X1 ATTEMPT. PT TOLERATED WELL. IV SITE D/C WITH CATH INTACT.
[2019-10-20] VITALS (10 sets, daily range): BP systolic 94–136; BP diastolic 48–92
--- NOTE | 2019-10-20 01:01 | NUR ---
PT MEDICATED FOR RIGHT KNEE PAIN 7-10. ASSISTED PT WITH REPOSITIONING IN BED. DENIES ANY OTHER WANTS OR NEEDS. CALL LIGHT WITHIN REACH. WILL CONTINUE TO MONITOR.
[2019-10-20 05:20] LABS: HEMATOCRIT 24.3 % (39.0-50.0); HEMOGLOBIN 7.4 g/dl (14.0-18.0); MEAN CORPUSCULAR HGB 26.8 pG CALC (26.0-32.0); MEAN CORPUSCULAR HGB CONC 30.5 g/L CALC (32.0-36.0); RED BLOOD COUNT 2.76 mill/uL (4.70-6.10); RED CELL DISTRI WIDTH 17.4 % (11.5-15.5)
[2019-10-20 05:41] LABS: ALBUMIN 2.9 g/dL (3.2-5.0); CREATININE 2.9 mg/dL (0.7-1.3); POTASSIUM 4.2 mmol/l (3.5-5.1)
[2019-10-20 05:45] LABS: CREATININE 2.9 mg/dL (0.7-1.3); MAGNESIUM 2.5 mg/dL (1.6-2.3); POTASSIUM 4.2 mmol/l (3.5-5.1)
--- NOTE | 2019-10-20 05:54 | NUR ---
PT C/O PAIN IN RIGHT KNEE 8-10. DISCUSSED WITH PT TO EARLY FOR LORTAB. PT MEDICATED WITH PRN TYLENOL AT TTHIS TIME AND ASSISTED WITH REPOSITIONING. PT DENIES ANY OTHER WANT OR NEEDS, ADITYA LIGHT WITHIN REACH. WILL CONTINUE TO MONITOR.
--- NOTE | 2019-10-20 09:00 | NUR ---
PT SEEN AWAKE, ALERT, ORIENTED X 3, PERHAPS OVERQUIET THIS MORNING. LUNGS CLEAR, 2 LPM NC. PT UP TO BSC WITH SMALL RESULT. NO SHORTNESS OF BREATH NOTED.
--- NOTE | 2019-10-20 13:00 | NUR ---
PT SEEN BY DR COBB TODAY, WILL RECEIVE ONE UNIT OF BLOOD AND POSSIBLE DISCHARGE TO HOME TOMORROW. PT SEEN SITTING UP DANGLING OFTEN, THEN RESTS IN THE BED OTHERWISE. NAD.
--- NOTE | 2019-10-20 16:35 | NUR ---
BLOOD TRANSFUSION HAS BEGUN, PT TOLERATES WELL WITHOUT ADVERSE REACTION.
--- NOTE | 2019-10-20 18:33 | NUR ---
DRESSING CHANGED TO LEFT GREAT TOE/FOOT. BLOOD TRANSFUSION COMPLETES WITHOUT ADVERSE REACTION.
--- NOTE | 2019-10-20 19:10 | NUR ---
REPORT FROM BUBBA RN. PT RESTING IN BED. ALERT AND ORIENTED. NO APPARENT DISTRESS NOTED. IV SITE APPEARS HEALTHY. GENERAL CARGO CLERK IN PLACE. 02 @ 2L/M VIA NC. DISCUSSED POC. PT VERBALIZED UNDERSTANDING. DRESSING TO LEFT FOOT, CDI. CALL LIGHT WITHIN REACH. WILL CONTINUE TO MONITOR.
--- NOTE | 2019-10-20 20:05 | NUR ---
PT MEDICATED FOR LEFT SHOULDER PAIN WITH PRN LORTAB. PT ALSO ASSISTED TO BSC AT THIS TIME. CALL LIGHT WITHIN REACH. PT INSTRUCTED TO CALL WHEN FINISHED.
--- NOTE | 2019-10-20 23:59 | NUR ---
CUP OF ICE PROVIDED UPON REQUEST. PT SITTING UP AT BEDSIDE BRUSHING TEETH. PT DENIES ANY OTHER WANTS OR NEEDS. CALL LIGHT WITHIN REACH. WILL CONTINUE TO MONITOR.
--- NOTE | 2019-10-21 03:02 | NUR ---
PT RESTING IN BED WITH EYES CLOSED. NO APPARENT DISTRESS NOTED. CALL LIGHT WITHIN REACH. WILL CONTINUE TO MONITOR.
[2019-10-21 04:15] VITALS: BP 116/64
[2019-10-21 05:54] LABS: HEMATOCRIT 28.1 % (39.0-50.0); HEMOGLOBIN 8.8 g/dl (14.0-18.0); MEAN CELL VOLUME 89.8 fL CALC (80.0-100.0); MEAN CORPUSCULAR HGB 28.1 pG CALC (26.0-32.0); MEAN CORPUSCULAR HGB CONC 31.3 g/L CALC (32.0-36.0); RED BLOOD COUNT 3.13 mill/uL (4.70-6.10); RED CELL DISTRI WIDTH 17.2 % (11.5-15.5)
[2019-10-21 06:12] LABS: ALBUMIN 3.1 g/dL (3.2-5.0); BILIRUBIN, TOTAL 1.4 mg/dL (0.0-1.4); CREATININE 2.6 mg/dL (0.7-1.3); POTASSIUM 4.5 mmol/l (3.5-5.1); TOTAL PROTEIN 5.6 g/dL (6.3-8.2)
[2019-10-21 07:15] VITALS: BP 109/58
--- NOTE | 2019-10-21 08:00 | NUR ---
PATIENT A/OX4, NO S/S RESP DISTRESS, PATIENT ON O2 VIA NC, PATIENT NO C/O PAIN, PATIENT HEART RHYTHM IN NORMAL SINUS, PATIENT ONE PERSON ASSIST TO COMMODE, CALL LIGHT WITHIN REACH
[2019-10-21 10:42] VITALS: BP 119/53
--- NOTE | 2019-10-21 12:00 | NUR ---
PATIENT SITTING UP ON COMMODE, PATIENT ATTEMPTING TO HAVE BOWEL MOVEMENT, NO S/S RESP DISTRESS, NO C/O PAIN, PATIENT HEART RHYTHM IN NORMAL SINUS
[2019-10-21 15:26] VITALS: BP 141/77
--- NOTE | 2019-10-21 16:45 | NUR ---
PATIENT ON O2 VIA NC, PATIENT O2 SATS DECREASE TO 90%, NOTIFIED DR. OBRIEN, PATIENT O2 INCREASE TO 2L TO 3L, IS GIVEN TO PATIENT, WILL CONTINUE TO MONITOR PATIENT
--- NOTE | 2019-10-21 18:00 | NUR ---
PATIENT A/OX4, NO S/S RESP DISTRESS, PATIENT ON O2 VIA NC, PATIENT NO C/O PAIN, PATIENT REQUEST PRN LAXATIVE, PATIENT LAST BOWEL MOVEMENT 10/20/19, PATIENT IS ONE PERSON ASSIST TO COMMODE, PATIENT WOUND TO RIGHT FOOT CHANGED PER MD ORDERS
[2019-10-21 19:49] VITALS: BP 145/78
[2019-10-21 23:59] VITALS: BP 116/60
--- NOTE | 2019-10-22 | NUR ---
PATIENT RESTING IN BED-VOIDING QS NETO RUINE IN URINAL. O2 REAPPLIED-FOUND OFF PATIENT WITH O2 SATS IN LOW 80'S. INSTRUCTED PATIENT TO LEAVE O2 VIA NASAL CANNULA IN PLACE. TELE MONITOR IN PLACE. DRESSING TO RIGHTFOOT CDI AT THIS TIME. ENCOURAGED PATIENT TO KEEP FOOT ELEVATED ON PILLOW. SAFETY PRECAUTIONS REINFORCED. CALL LIGHT IN REACH. WILL CONT TO MONITOR.
[2019-10-22 00:08] VITALS: BP 132/77
[2019-10-22 04:42] VITALS: BP 141/77
[2019-10-22 06:10] LABS: ALBUMIN 3.1 g/dL (3.2-5.0); CREATININE 2.6 mg/dL (0.7-1.3); POTASSIUM 4.7 mmol/l (3.5-5.1)
--- NOTE | 2019-10-22 07:30 | NUR ---
PATIENT A/OX4, NO C/O PAIN, NO S/S RESP DISTRESS, PATIENT ON O2 VIA NC, PATIENT DRESSING TO LEFT FOOT CHANGED, PATIENT HEART RHYTHM IN NORMAL SINUS, WILL CONTINUE TO MONITOR PATIENT, CALL LIGHT WITHIN REACH
[2019-10-22 07:50] VITALS: BP 148/73
[2019-10-22 10:45] VITALS: BP 126/69
--- NOTE | 2019-10-22 13:00 | NUR ---
PATIENT DRY DRESSING FELL OFF, CHANGE PATIENT DRESSING TO LEFT FOOT SECOND TIME, PATIENT A/OX4, NO C/O PAIN, NO S/S RESP DISTRESS, PATIENT O2 VIA NC, PATIENT HAD LARGE BOWEL MOVEMENT, WILL CONTINUE TO MONITOR PATIENT, CALL LIGHT WITHIN REACH
[2019-10-22 15:36] VITALS: BP 119/64
--- NOTE | 2019-10-22 17:30 | NUR ---
PATIENT DIABETIC CONTINUE BLOOD GLUCOSE CONTINUE TO BE ABOVE 300, PATIENT CURRENT BLOOD GLUCOSE 369, NOTIFIED DR. OBRIEN
[2019-10-22 18:59] VITALS: BP 119/69
--- NOTE | 2019-10-22 20:00 | NUR ---
PATIENT SITTING ON THE SIDE OF THE BED. AWAKE ALERT AND ORIENTEDX3. TELE MONITOR REMOVED-WAS D/C'ED. IV SITE TO LEFT FOREARM INTACT. DRESSING TO LEFT GREAT TOE INTACT. MEDICATED FOR GENERALIZED PAIN WITH LORTAB ORDERED. VOIDING QS YELLOW URINE IN URINAL. PATIENT REFUSED SURFAK AT THIS TIME. SAFETY PRECAUTIONS REINFORCED. CALL LIGHT IN REACH. WILL CONT TO MONITOR.
--- NOTE | 2019-10-23 | NUR ---
PATIENT RESTING INBED-POSITIONED ON LEFT SIDE WITH EYES CLSOED. RESPS ARE EVEN ANDUNLABORED. CALL LIGHT IN REACH. WILL CONT TO MONITOR.
[2019-10-23 00:08] VITALS: BP 132/77
--- NOTE | 2019-10-23 03:00 | NUR ---
PATIENT RESTING IN BED-C/O NAUSEA-PROVIDED WITH DIET GINGERALE. VOIDING QS NETO URINE IN URINAL. CALL LIGHT IN REACH. WILL CONT TOO MONITOR.
[2019-10-23 03:59] VITALS: BP 133/78
[2019-10-23 06:45] LABS: HEMATOCRIT 30.3 % (39.0-50.0); HEMOGLOBIN 9.2 g/dl (14.0-18.0); MEAN CELL VOLUME 89.4 fL CALC (80.0-100.0); MEAN CORPUSCULAR HGB 27.1 pG CALC (26.0-32.0); MEAN CORPUSCULAR HGB CONC 30.4 g/L CALC (32.0-36.0); RED BLOOD COUNT 3.39 mill/uL (4.70-6.10); RED CELL DISTRI WIDTH 17.3 % (11.5-15.5)
[2019-10-23 07:10] LABS: CREATININE 2.4 mg/dL (0.7-1.3)
--- NOTE | 2019-10-23 07:10 | NUR ---
REPORT RECEIVED FROM MELANY GOLDEN;PT RESTING AT BEDSIDE;INTRODUCED SELF TO TP AND POC DISCUSSED;RESPIRATIONS EVEN AND UNLABORED ON O2 @ 2L VIA NC;PT DENIES ANY CURRENT PAIN OR DISCOMFORTS;PT ENCOURAGED TO CALL FOR ASSISTANCE IF NEEDED;FALL PRECAUTIONS IN PLACE WITH BED IN THE LOWEST POSITION AND CALL LIGHT IN REACH;WILL CONTINUE TO MONITOR
--- NOTE | 2019-10-23 07:37 | NUR ---
CRITICAL BUN OF 82 OBTAINED AT THIS TIME. NOTIFIED AND NO NEW ORDERS RECEIVED.
[2019-10-23 09:12] VITALS: BP 123/66
--- NOTE | 2019-10-23 09:15 | NUR ---
PT RESTING IN SEMI FOWLERS POSITION,A&O X3;VS OBTAINED AND ASSESSMENT COMPLETED;PT DENIES ANY CURRENT PAIN OR DISCOMFORTS,PAIN SCALE AND REPORTING EDUCATED;RESPIRATIONS EVEN AND UNLABORED ON O2 @ 2L VIA NC;ABDOMEN DISTENDED/SOFT ON PALPATION AND ACTIVE IN ALL 4 QUADRANTS;WEAK PEDAL PULSES;DRESSING TO RT GREAT TOE CDI;#22G TO LFA FLUSHED AND PATENT,SITE APPEARS HEALTHY;ACCUCHECK 315,PT WAS COVERED WITH SLIDING SCALE NOVOLOG;PT DENIES ANY ADDITIONAL NEEDS AND IS ENCOURAGED TO CALL FOR ASSISTANCE IF NEEDED;FALL PRECAUTIONS IN PLACE WITH CALL LIGHT IN REACH;WILL CONTINUE TO MONITOR
[2019-10-23] MEDS ORDERED: ALLOPURINOL100 MG PO (11:55)
[2019-10-23] MEDS ORDERED: MEDDOSEPAK PO (11:55)
[2019-10-23] MEDS ORDERED: FERROUS SULFAT325 MG PO (11:55)
[2019-10-23 12:00] VITALS: BP 140/71
--- NOTE | 2019-10-23 12:12 | NUR ---
PT RESTING IN SEMI FOWLERS POSITION;RESPIRATIONS EVEN AND UNLABORED ON O2 @ 2L VIA NC;PT DENIES ANY CURRENT PAIN OR DISCOMFORT;ACCUCHECK 337, PT COVERED WITH SLIDING SCALE NOVOLOG PER ORDER;PT DENIES ANY ADDITIONAL NEEDS AND IS ENCOURAGED TO CALL FOR ASSISTANCE IF NEEDED;CALL LIGHT IN REACH;WILL CONTINUE TO MONITOR
--- NOTE | 2019-10-23 14:05 | NUR ---
ALL DISCHARGE INSTRUCTIONS PROVIDED AT THIS TIME;RX FOR MEDROL PACK,IRON AND ALLUPORONIAL PROVIDED;PT INSTRUCTED TO MONITOR BP AND BLOOD SUGAR;HOME O2 WAS PROVIDED BY [facility];IV SITE REMOVED WITH CATHETER INTACT;PT DENIES ANY ADDITIONAL QUESTIONS OR NEEDS;WHEELCHAIR TO BE PROVIDED FOR D/C HOME;FRIEND TO TRANSPORT PT HOME.
--- NOTE | 2019-10-23 14:19 | NUR ---
Discharge instructions given. Patient verbalizes understanding of same. Discharged in stable condition via Wheelchair to Home with *Other. All belongings sent with pt. PT TO LOBBY IN STABLE CONDITION VIA WHEELCHAIR ACCOMPANIED BY [facility] FOR D/C HOME.FRIEND TO TRANSPORT PT HME.
== END 2019-10-23 14:16 | disposition home health service (06) | DRG 291 ==
LOC: ED 12:54 → ED-I 14:45 → ED 15:09 → MS2 15:10 → ED-I 15:10 → MS2 15:39
PROVIDERS: Internal Medicine Nephrology; Nurse Practitioner Family; ADMIT Internal Medicine; ATTEND Internal Medicine
PROC: 30233N1 Transfusion of Nonautologous Red Blood Cells into Peripheral Vein, Percutaneous Approach (ICD-10-PCS; principal; 2019-10-16)
PROC: 30233N1 Transfusion of Nonautologous Red Blood Cells into Peripheral Vein, Percutaneous Approach (ICD-10-PCS; 2019-10-20)
DX: I13.0 Hypertensive heart and chronic kidney disease with heart failure and stage 1 through stage 4 chronic kidney disease, or unspecified chronic kidney disease (principal); I50.23 Acute on chronic systolic (congestive) heart failure; J96.21 Acute and chronic respiratory failure with hypoxia; N17.9 Acute kidney failure, unspecified; N18.4 Chronic kidney disease, stage 4 (severe); E87.1 Hypo-osmolality and hyponatremia; E87.2 Acidosis; L03.116 Cellulitis of left lower limb; E11.22 Type 2 diabetes mellitus with diabetic chronic kidney disease; E11.42 Type 2 diabetes mellitus with diabetic polyneuropathy; E11.51 Type 2 diabetes mellitus with diabetic peripheral angiopathy without gangrene; E11.621 Type 2 diabetes mellitus with foot ulcer; E11.65 Type 2 diabetes mellitus with hyperglycemia; I25.10 Atherosclerotic heart disease of native coronary artery without angina pectoris; J44.9 Chronic obstructive pulmonary disease, unspecified; E78.5 Hyperlipidemia, unspecified; D63.1 Anemia in chronic kidney disease; E77.8 Other disorders of glycoprotein metabolism; L97.529 Non-pressure chronic ulcer of other part of left foot with unspecified severity; M10.061 Idiopathic gout, right knee; K59.00 Constipation, unspecified; F32.9 Major depressive disorder, single episode, unspecified; R74.0 Nonspecific elevation of levels of transaminase and lactic acid dehydrogenase [LDH]; I25.2 Old myocardial infarction; Z99.81 Dependence on supplemental oxygen; Z95.5 Presence of coronary angioplasty implant and graft; Z87.891 Personal history of nicotine dependence; Z79.4 Long term (current) use of insulin; Z95.820 Peripheral vascular angioplasty status with implants and grafts; Z89.431 Acquired absence of right foot; Z86.73 Personal history of transient ischemic attack (TIA), and cerebral infarction without residual deficits
CPT/HCPCS: G0378; P9016; Q5106 EC

== ENCOUNTER 2019-11-02 | Emergency (ER) | payer MEDICARE, MEDICAID ==
[~2019-11-02] MED LIST changes: +FERROUS SULFAT325 MG PO; +MEDDOSEPAK PO
[2019-11-02 20:55] LABS: HEMOGLOBIN 9.7 g/dl (14.0-18.0); IMMATURE GRANULOCYTES 0.6 % (0.0-5.0); MEAN CELL VOLUME 87.4 fL CALC (80.0-100.0); MEAN CORPUSCULAR HGB 26.5 pG CALC (26.0-32.0); MEAN CORPUSCULAR HGB CONC 30.3 g/dL CAL (32.0-36.0); NEUT# 6.7 thou/uL (1.82-7.42); RED BLOOD COUNT 3.66 mill/uL (4.70-6.10); RED CELL DISTRI WIDTH 16.2 % (11.5-15.5)
[2019-11-02 21:11] LABS: BILIRUBIN, TOTAL 1.2 mg/dL (0.0-1.4); CREATININE 1.8 mg/dL (0.7-1.3); POTASSIUM 3.9 mmol/l (3.5-5.1); TOTAL PROTEIN 5.5 g/dL (6.3-8.2)
[2019-11-02] MEDS ORDERED: TYLENOL # 31 TA1 PO (21:31)
[2019-11-02] MEDS ORDERED: COLCHICINE0.6 M2 PO (21:31)
[2019-11-02] MEDS ORDERED: PREDNISONE50 MG PO (21:31)
[2019-11-02] MEDS ORDERED: ZYLOPRIM300 MG PO (21:31)
== END 2019-11-02 22:57 | disposition home or self-care (01) ==
PROVIDERS: Family Medicine
DX: M10.032 Idiopathic gout, left wrist (principal); I11.0 Hypertensive heart disease with heart failure; I50.9 Heart failure, unspecified; I25.10 Atherosclerotic heart disease of native coronary artery without angina pectoris; J44.9 Chronic obstructive pulmonary disease, unspecified; E11.51 Type 2 diabetes mellitus with diabetic peripheral angiopathy without gangrene; E11.40 Type 2 diabetes mellitus with diabetic neuropathy, unspecified; Z79.4 Long term (current) use of insulin; Z89.432 Acquired absence of left foot; Z95.820 Peripheral vascular angioplasty status with implants and grafts

== ENCOUNTER 2019-11-16 10:20 | Inpatient (IN) | payer MEDICARE ==
[~2019-11-16] VITALS: Ht 188 cm; Wt 101.9 kg
[~2019-11-16 10:20] MED LIST changes: +COLCHICINE0.6 M2 PO; +PREDNISONE50 MG PO; +ZYLOPRIM300 MG PO
--- NOTE | 2019-11-16 10:20 | NUR ---
PT ARRIVES ALERT AND RESPONSIVE,IN NO DISTRESS, JOKING WITH STAFF
[2019-11-16 10:49] LABS: HEMOGLOBIN 8.9 g/dl (14.0-18.0); IMMATURE GRANULOCYTES 0.7 % (0.0-5.0); MEAN CELL VOLUME 85.8 fL CALC (80.0-100.0); MEAN CORPUSCULAR HGB 26.3 pG CALC (26.0-32.0); MEAN CORPUSCULAR HGB CONC 30.7 g/dL CAL (32.0-36.0); NEUT# 4.96 thou/uL (1.82-7.42); RED BLOOD COUNT 3.38 mill/uL (4.70-6.10); RED CELL DISTRI WIDTH 16.9 % (11.5-15.5)
[2019-11-16 11:10] LABS: ALBUMIN 3.2 g/dL (3.2-5.0); BILIRUBIN, TOTAL 0.9 mg/dL (0.0-1.4); CREATININE 2.2 mg/dL (0.7-1.3); TOTAL PROTEIN 5.7 g/dL (6.3-8.2)
[2019-11-16 11:15] LABS: POTASSIUM 5.1 mmol/l (3.5-5.1)
--- NOTE | 2019-11-16 11:20 | NUR ---
PT SITTING UP WATCHING TV IN NO DISRTESS, NO COUGH. DENIES SOB. SR X2, CALL LIGHT WITHIN EASY REACH. UPDATED ON WAIT TIME
--- NOTE | 2019-11-16 11:40 | NUR ---
PT SWABBED FOR COVID-19 AT THIS TIME
--- NOTE | 2019-11-16 12:00 | NUR ---
UP TO BEEDSIDE , STEADY. URINATED 300CC CLEAR NETO URINE. ASSISTED BACCK TO BED AND ALL MONITORS ASSESSED NO SOB WITH O2@2LPM VIA NC
--- NOTE | 2019-11-16 13:00 | NUR ---
OPT UPDATED ON WAIT TIME, VSS. PT IN NO DISTRESS. DENIES CP
--- NOTE | 2019-11-16 13:30 | NUR ---
PT URINATED 175CC CLEAR YELLOW URINE.
--- NOTE | 2019-11-16 14:00 | NUR ---
PT TRANSPORTED TO [facility] WITH MASK ON AND WRAPPED IN BLANKET. O2@2LPM VIA NC IN NO DISTRESS. PT TOOK ALL BELONGINGS WITH HIM.
--- NOTE | 2019-11-16 14:30 | NUR ---
PT ARRIVED TO [facility] VIA WHEELCHAIR ACCOMPANIED BY ER NURSE, NO SIGNS OF DISTRESS NOTED, RESP EVEN AND UNLABORED. PT ALERT AND ORIENTED X3. ORIENTED PT TO ROOM AND CALL LIGHT, PT VOICES NO NEEDS OR COMPLAINTS AT THIS TIME. DISCUSSED POC, PT COOPERATIVE, IV ANTIBIOTIC INFUSION INITIATED. ADMISSION ASSESSMENT COMPLETED, PT HAS A DRESSING TO L GREAT TOE FROM WOUND CARE. DRESSING CDI, NON SKID SOCKS APPLIED. CALL LIGHT IN REACH,CONTINUE TO MONITOR.
[2019-11-16 14:47] VITALS: BP 125/71
[2019-11-16 18:51] VITALS: BP 140/78
--- NOTE | 2019-11-16 19:00 | NUR ---
REPORT RECEIVED FROM ADOLFO HILL. PT RESTING IN BED. NO S/S OF DISTRESS AT THIS TIME. WILL CONTINUE TO MONTIOR.
--- NOTE | 2019-11-16 19:09 | NUR ---
PT RESTING IN BED, NO SIGNS OF DISTRESS NOTED, RESP EVEN AND UNLABORED. DISCUSSED LAB DRAW, PT TOLERATED WELL. CALL LIGHT IN REACH,CONTINUE TO MONITOR.
--- NOTE | 2019-11-16 19:35 | NUR ---
PT ASSISTED TO THE RESTROOM AND BACK TO BED GATE WEAK. PT UNABLE TO HAVE BM STATES HE HAD GAS. SAFETY PRECAUTIONS IN PLACE, WILL CONTINUE TO MONITOR.
--- NOTE | 2019-11-17 01:16 | NUR ---
PT RESTING IN BED. RESPIRATIONS EVEN AND UNLABORED ON O2 @ 2L VIA NC. EMPTIED 650ML FROM URINAL. SAFETY PRECAUTIONS IN PLACE. WILL CONTINUE TO MONITOR.
[2019-11-17 05:37] VITALS: BP 159/82
[2019-11-17 05:37] LABS: HEMATOCRIT 31.2 % (39.0-50.0); HEMOGLOBIN 9.6 g/dl (14.0-18.0); MEAN CELL VOLUME 84.8 fL CALC (80.0-100.0); MEAN CORPUSCULAR HGB 26.1 pG CALC (26.0-32.0); MEAN CORPUSCULAR HGB CONC 30.8 g/dL CAL (32.0-36.0); RED BLOOD COUNT 3.68 mill/uL (4.70-6.10); RED CELL DISTRI WIDTH 16.6 % (11.5-15.5)
[2019-11-17 06:01] LABS: CREATININE 2.2 mg/dL (0.7-1.3)
[2019-11-17 06:03] LABS: POTASSIUM 4.5 mmol/l (3.5-5.1)
--- NOTE | 2019-11-17 07:00 | NUR ---
REPORT RECEIVED FROM MELANY CAZARES. PT RESTING IN BED SEMIFOWLERS; ASSISTED INTO SITTING POSITION ON EDGE OF BED. ALERT AND ORIENTED. DENIES PAIN. RESPIRATIONS EVEN AND UNLABORED ON OXYGEN. SPO2 DECREASED TO 88% WITH EXERTION; INCREASED TO 91%. PLAN OF CARE REVIEWED. PT ENCOURAGED TO VERBALIZE CONCERNS. STATES UNDERSTANDING. SAFETY MEASURES IN PLACE. CALL LIGHT WITHIN REACH.
[2019-11-17 08:00] VITALS: BP 140/83
[2019-11-17 10:45] VITALS: BP 109/64
--- NOTE | 2019-11-17 12:33 | NUR ---
ZOFRAN GIVEN FOR NAUSEA. PT REPORTS THAT HE THINKS IT WAS THE BROCCOLI HE ATE FOR LUNCH. ZITHROMAX INFUSING; IV SITE APPEARS HEALTHY. PT SITTING UP ON EDGE OF BED.
--- NOTE | 2019-11-17 13:36 | NUR ---
DR. COBB AT BEDSIDE.
--- NOTE | 2019-11-17 15:57 | NUR ---
EMS SITE D/C'D; NEW SITE PLACED ON RFA; CEFEPIME INFUSING AT THIS TIME.
[2019-11-17 16:00] VITALS: BP 109/65
--- NOTE | 2019-11-17 19:03 | NUR ---
COVID-19 RESULTS NEGATIVE PER LAB
--- NOTE | 2019-11-17 20:12 | NUR ---
REPORT FROM CORAL MOSLEY. PT MOVED FROM NEGATIVE PRESSURE ROOM TO ROOM 274 DUE TO NEGATIVE COVID RESULTS. PT ALERT AND ORIENTED. NO APPARENT DISTRESS NOTED. PT DENIES ANY PAIN OR DISCOMFORT. 02 @ 2L/M VIA [place]. SHIPPING CLERK PACKING IN PLACE. CALL LIGHT WITHIN REACH. WILL CONTINUE TO MONITOR.
--- NOTE | 2019-11-17 20:16 | NUR ---
INFORMED OF COVID RESULTS
[2019-11-17 20:28] VITALS: BP 140/81
[2019-11-17 23:56] VITALS: BP 125/70
--- NOTE | 2019-11-18 00:16 | NUR ---
PT RESTING IN BED WITH EYES CLOSED. NO APPARENT DISTRESS NOTED. CALL LIGHT WITHIN REACH. WILL CONTINUE TO MONITOR.
[2019-11-18 04:24] VITALS: BP 121/66
[2019-11-18 04:39] LABS: HEMATOCRIT 27.3 % (39.0-50.0); HEMOGLOBIN 8.5 g/dl (14.0-18.0); IMMATURE GRANULOCYTES 0.6 % (0.0-5.0); MEAN CORPUSCULAR HGB 26.5 pG CALC (26.0-32.0); MEAN CORPUSCULAR HGB CONC 31.1 g/dL CAL (32.0-36.0); NEUT# 4.86 thou/uL (1.82-7.42); RED BLOOD COUNT 3.21 mill/uL (4.70-6.10); RED CELL DISTRI WIDTH 16.6 % (11.5-15.5)
[2019-11-18 05:03] LABS: BILIRUBIN, TOTAL 0.8 mg/dL (0.0-1.4); CREATININE 2.2 mg/dL (0.7-1.3); POTASSIUM 4.6 mmol/l (3.5-5.1); TOTAL PROTEIN 5.5 g/dL (6.3-8.2)
[2019-11-18 08:00] VITALS: BP 120/57
--- NOTE | 2019-11-18 08:00 | NUR ---
change of shift report received from robbin camp
[2019-11-18] MEDS ORDERED: DOXYCYCL HYC100 MG PO (10:17)
--- NOTE | 2019-11-18 11:12 | NUR ---
KERI CALLED AND INQUIRED IF PT WAS BEING DISCHARGED.
[2019-11-18 11:14] VITALS: BP 111/60
--- NOTE | 2019-11-18 11:19 | NUR ---
WILL NOT BE RELEASED UNTIL TOMORROW.
--- NOTE | 2019-11-18 12:00 | NUR ---
PT SITTING UP IN BED. PT IS PLEASANT AND COOPERATIVE. PT DENIES PAIN OR DISCOMFORT. ECONOMIC DEVELOPMENT SPECIALIST WILL CONTINUE TO MONITOR. CALL LIGHT WITHIN EASY REACH
--- NOTE | 2019-11-18 16:00 | NUR ---
PT RESTING COMFORTABLY IN BED. NO S/S OF DISTRESS. PT AGREES TO NOTIFY DIRECTOR INDUSTRIAL NURSING OF ANY CONCERNS. DIRECTOR INDUSTRIAL NURSING WILL CONTINUE TO MONITOR
[2019-11-18 16:15] VITALS: BP 130/73
[2019-11-18 19:10] VITALS: BP 130/74
--- NOTE | 2019-11-18 20:00 | NUR ---
PATIENT RESTING IN BED AT THIS TIME-APPEARS SLEEPING WITH EYES CLOSED AND HOB SLIGHTLY ELEVATED. O2 VIA NASAL CANNULA IN PLACE. TELE MONITOR IN PLACE. IV SITE TO LEFT FROEARM INTACT AND APPEARS HEALTHY AT THIS TIME. CALL LIGHT IN REACH. WILL CONT TO MONITOR.
--- NOTE | 2019-11-18 21:30 | NUR ---
[id number] MEDICATED WITH LEVEMIR ORDERED AND WITH NOVALOG PER SLIDING SCALE COVERAGE PROTOCOL. VOIDING QS NETO URINE IN URINAL. WEAR O2 ON AND OFF PRN SOB. SAFETY PRECAUTIONS REINFORCED. CALL LIGHT IN REACH. WILL CONT TO MONITOR.
[2019-11-18 23:47] VITALS: BP 134/71
--- NOTE | 2019-11-19 | NUR ---
PATIENT APPEARS SLEEPING AT THIS TIME WITH EYES CLOSED. O2 VIA NASAL CANNULA IN PLACE. ADDED HUMIDIFICATION TO O2. RESP ARE EVEN AND UNLABORED. VOIDING QS IN URINAL. CALL LIGHT IN RREACH. WILL CONT TO MONITOR.
[2019-11-19 03:15] VITALS: BP 116/65
--- NOTE | 2019-11-19 06:15 | NUR ---
RESTING IN BED AT THIS TIME WITH O2 VIA NASAL CANNULA IN PLACE/. TELE MONITOR IN PLACE. RESP ARE EVEN AND UNLABORED. CALL LIGHT IN REACH. WILL CONT TO MONITOR.
--- NOTE | 2019-11-19 07:30 | NUR ---
CHANGE OF SHIFT REPORT RECEIVED FROM MELANY GOLDEN. PT IN SUPINE POSITION IN BED. PT DENIES PAIN OR DISCOMFORT. PT HADS LOW GRADE FEVER AT 99.3(TEMPORAL) PT'S ROOM VERY WARM. PT STATES THAT HE LIKES THE ROOM WARM. TYLENOL ADMINISTERED. RESEARCH TECHNICIAN WILL CONTINUE TO MONITOR.
[2019-11-19 07:40] VITALS: BP 122/60
[2019-11-19 08:55] LABS: CREATININE 2.3 mg/dL (0.7-1.3); POTASSIUM 4.1 mmol/l (3.5-5.1)
[2019-11-19 11:39] VITALS: BP 101/60
--- NOTE | 2019-11-19 12:00 | NUR ---
PT HAD A MEDIUM BOWEL MOVEMENT. IV STILL RUNNING AT THIS TIME. SENIOR ACCOUNTS PAYABLE CLERK WILL DISCHARGE ONCE ABX COMPLETED
--- NOTE | 2019-11-19 14:01 | NUR ---
Discharge instructions given. Patient verbalizes understanding of same. Discharged in stable condition via Taxi to Home with *Other. All belongings sent with pt.
== END 2019-11-19 14:00 | DRG 291 ==
LOC: ED 10:20 → ED-I 12:04 → ED 12:18 → MS2 12:19 → ED-I 12:19 → MS2 13:09
PROVIDERS: Nurse Practitioner Family; ADMIT Internal Medicine; ATTEND Internal Medicine
DX: I13.0 Hypertensive heart and chronic kidney disease with heart failure and stage 1 through stage 4 chronic kidney disease, or unspecified chronic kidney disease (principal); I50.23 Acute on chronic systolic (congestive) heart failure; J18.9 Pneumonia, unspecified organism; J96.21 Acute and chronic respiratory failure with hypoxia; J44.0 Chronic obstructive pulmonary disease with (acute) lower respiratory infection; N17.9 Acute kidney failure, unspecified; E11.22 Type 2 diabetes mellitus with diabetic chronic kidney disease; N18.3 Chronic kidney disease, stage 3 (moderate); E11.42 Type 2 diabetes mellitus with diabetic polyneuropathy; E11.51 Type 2 diabetes mellitus with diabetic peripheral angiopathy without gangrene; I25.10 Atherosclerotic heart disease of native coronary artery without angina pectoris; E78.5 Hyperlipidemia, unspecified; I25.2 Old myocardial infarction; Z95.5 Presence of coronary angioplasty implant and graft; Z89.432 Acquired absence of left foot; Z95.820 Peripheral vascular angioplasty status with implants and grafts; Z79.4 Long term (current) use of insulin; Z87.891 Personal history of nicotine dependence; Z99.81 Dependence on supplemental oxygen; Z20.828 Contact with and (suspected) exposure to other viral communicable diseases
CPT/HCPCS: J0692

== ENCOUNTER 2020-04-13 20:05 | Inpatient (IN) | payer MEDICARE ==
[~2020-04-13] VITALS: Ht 185.4 cm; Wt 110.0 kg
[~2020-04-13 20:05] MED LIST changes: +DOXYCYCL HYC100 MG PO
--- NOTE | 2020-04-13 20:10 | NUR ---
PT TO ROOM VIA W/C AND HOME O2. ASSISTED TO BED. TRIAGED AT BEDSIDE.
--- NOTE | 2020-04-13 20:20 | NUR ---
DAUGHTER HOME WITH KIDS
[2020-04-13 20:34] LABS: HEMATOCRIT 30.7 % (39.0-50.0); HEMOGLOBIN 8.9 g/dl (14.0-18.0); IMMATURE GRANULOCYTES 0.3 % (0.0-5.0); MEAN CORPUSCULAR HGB 24.9 pG CALC (26.0-32.0); NEUT# 5.08 thou/uL (1.82-7.42); RED BLOOD COUNT 3.57 mill/uL (4.70-6.10); RED CELL DISTRI WIDTH 15.6 % (11.5-15.5)
[2020-04-13 20:41] LABS: ALBUMIN 3.6 g/dL (3.2-5.0); CREATININE 2.4 mg/dL (0.7-1.3); TOTAL PROTEIN 6.4 g/dL (6.3-8.2)
[2020-04-13] MEDS ORDERED: TAMSULOSIN0.4 MG PO (20:47)
[2020-04-13] MEDS ORDERED: LEVEMIR FL100 UNIT/M SC (20:48)
[2020-04-13 20:52] LABS: URINE BILIRUBIN - DIPSTICK NEGATIVE (NEGATIVE); URINE BLOOD DIPSTICK SMALL (NEGATIVE); URINE COLOR YELLOW; URINE GLUCOSE - DIPSTICK 100 mg/dL (NEGATIVE); URINE KETONE NEGATIVE (NEGATIVE); URINE LEUK ESTERASE NEGATIVE (NEGATIVE); URINE NITRITE - DIPSTICK NEGATIVE (Negative); URINE PROTEIN - DIPSTICK 100 mg/dL (NEG-TRACE); URINE UROBILINOGEN - DIPSTICK 0.2 E.U./dL (0.2)
--- NOTE | 2020-04-13 20:52 | NUR ---
PT UP TO BEDSIDE TO VOID. 150 CC OF CLEAR NETO URINE. PT ASSISTED BACK TO BED. SAT DECREASED TO 85% ON NC @ [address] ARRIAGA NOTIFIED[address] TO BEDSIDE TO RE-EVAL.
[2020-04-13 20:57] LABS: URINE WBC 0-2 WBC/hpf (0-5)
--- NOTE | 2020-04-13 21:21 | NUR ---
PHARMACY CONSULT PLACED.
--- NOTE | 2020-04-13 21:48 | NUR ---
PT UP TO VOID 150 CC'S. THEN TO BSC TO DEFECATE.
--- NOTE | 2020-04-13 22:19 | NUR ---
REPORT CALLED TO TONYA/MED-SURG.
[2020-04-13 22:30] VITALS: BP 162/96
--- NOTE | 2020-04-13 22:30 | NUR ---
64 YEAR OLD MALE ARRIVED TO FLOOR FROM ER VIA W/C ACCOMPANIED BY ER STAFF WITH DIAGNOSIS OF PNEUMONIA AND CHF. PATIENT IS ALERT, VERBAL WITH INT CONFUSION, ABLE TO MAKE NEEDS KNOWN. ABLE TO TOLERATE MEDS WELL WHOLE. FSBS ORDERED WITH SSI PRN--NO S/S OF GLYCEMIC REACTION NOTED--NON-COMPLAINT WITH DIET. SCHED LEVEMIR ORDERS FOR HS--GIVEN UPON ARRIVAL TO FLOOR. PIV SITE PATENT TO RIGHT AC--FLUSHES WELL--SITE WITHOUT ANY S/S OF INFECTION NOTED. TO RECEIVE IV ABT THERAPY RELATED TO PNEUMONIA. CONT OF BOWEL AND BLADDER WITH OCC EPISODES OF INC NOTED--CARE PROVIDED PRN--OUT OF BED TO BEDSIDE COMMODE WITH MINIMAL ASSIST NEEDED. DENIES PAIN OR DISCOMFORT AT TIME OF ASSESSMENT. O2 @ 2L/MIN BNC--NO S/S OF RESP DISTRESS NOTED. NOTED TO HAVE 1+ PITTING EDEMA TO BILATERAL LOWER EXTREMITIES. TELEMETRY TO BE MONITORED BY DOT COMPLIANCE MANAGER. CXR ORDERED FOR IN THE AM. NKDA. FULL CODE. DIABETIC 1800 CALORIE DIET. LAST BM TODAY. 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 ORIENTED TO ROOM --C/L WITHIN REACH. WILL CONT TO MONITOR FOR ANY FURTHER CHANGES THROUGHOUT THE NIGHT.
--- NOTE | 2020-04-13 22:30 | NUR ---
PT VOIDED ANOTHER 100 CC'S OF URINE. TO FLOOR VIA W/C WITH O2 VIA NC AND POCKET MONITOR. PT AMBULATORY TO BED UPON ARRIVAL.
--- NOTE | 2020-04-13 22:45 | NUR ---
TO FLOOR VIA W/C AFTER VOIDING 100 CC'S. WITH O2. POCKET MONITOR
[2020-04-14] VITALS: BP 117/66
--- NOTE | 2020-04-14 02:30 | NUR ---
PATIENT RESTING SOUNDLY IN BED WITH EYES CLOSED AT THIS TIME. TELEMETRY IN PLACE--SINUS RHYTHM AND SINUS TACH WITH HRs @ 92/100--ALSO NOTED IVCD AND 1ST DEGREE AV BLOCK. DENIES ANY PAIN OR DISCOMFORT. WILL CONT TO MONITOR FOR ANY FURTHER CHANGES.
[2020-04-14 04:00] VITALS: BP 134/84
[2020-04-14 04:51] LABS: HEMATOCRIT 27.8 % (39.0-50.0); HEMOGLOBIN 8.2 g/dl (14.0-18.0); IMMATURE GRANULOCYTES 0.3 % (0.0-5.0); MEAN CELL VOLUME 86.1 fL CALC (80.0-100.0); MEAN CORPUSCULAR HGB 25.4 pG CALC (26.0-32.0); MEAN CORPUSCULAR HGB CONC 29.5 g/dL CAL (32.0-36.0); NEUT# 4.26 thou/uL (1.82-7.42); RED BLOOD COUNT 3.23 mill/uL (4.70-6.10); RED CELL DISTRI WIDTH 15.6 % (11.5-15.5)
[2020-04-14 05:08] LABS: CREATININE 2.4 mg/dL (0.7-1.3); POTASSIUM 3.8 mmol/l (3.5-5.1)
[2020-04-14 07:49] VITALS: BP 110/66
--- NOTE | 2020-04-14 10:16 | NUR ---
PT SEEN AT REST IN THE BED, LIKES TO REST ON ONE SIDE OR OTHER. LNGS CLEAR, 2 LPM, ORIENTED X 3. DECREASED PEDAL PULSES, 1+ BLE EDEMA. NO SHORTNESS OF BREATH, NO COMPLAINTS HEARD.
[2020-04-14 11:12] VITALS: BP 126/56
--- NOTE | 2020-04-14 12:43 | NUR ---
PT REMAINS AT REST IN THE BED WITHOUT COMPLAINT OR EVIDENCE OF DISTRESS. PT PROVIDED LASIX ORDERED FOR FLUID BUILDUP.
[2020-04-14 15:15] VITALS: BP 98/64
--- NOTE | 2020-04-14 16:24 | NUR ---
PT RESTS IN THE BED WITH EYES CLOSED, NO EVIDENCE OF DISTRESS. PT RECEIVED ABX ORDERED.
[2020-04-14 19:00] VITALS: BP 106/74
--- NOTE | 2020-04-14 20:38 | NUR ---
PT SITTING ON THE SIDE OF THE BED. A&O X3. NO DISTRESS NOTED. O2 VIA NC @2L IN PLACE, PT HOME O2 DEPENDENT. EDEMA NOTED TO BLE. CLEAR/DIMINISHED BREATH SOUNDS HEARD UPON AUSCULTATION. NO OTHER NEEDS AT THIS TIME. ASSESSMENT COMPLETED. DISCUSSED POC. CALL LIGHT IN REACH. CONTINUE TO MONITOR.
--- NOTE | 2020-04-15 | NUR ---
PT SLEEPING IN BED. RESP EVEN AND UNLABORED. CONTINUE TO MONITOR.
[2020-04-15 00:40] VITALS: BP 105/72
[2020-04-15 04:30] VITALS: BP 110/71
[2020-04-15 05:22] LABS: HEMATOCRIT 27.9 % (39.0-50.0); HEMOGLOBIN 8.1 g/dl (14.0-18.0); MEAN CELL VOLUME 87.2 fL CALC (80.0-100.0); MEAN CORPUSCULAR HGB 25.3 pG CALC (26.0-32.0); RED BLOOD COUNT 3.2 mill/uL (4.70-6.10); RED CELL DISTRI WIDTH 15.4 % (11.5-15.5)
--- NOTE | 2020-04-15 05:39 | NUR ---
PT SLEEPING IN BED. AWAKENED TO TAKE SYNTHROID. NO OTHER NEEDS AT THIS TIME. CALL LIGHT IN REACH.CONTINUE TO MONITOR
[2020-04-15 05:50] LABS: CREATININE 2.6 mg/dL (0.7-1.3); POTASSIUM 4.4 mmol/l (3.5-5.1)
[2020-04-15 05:52] LABS: ALBUMIN 2.8 g/dL (3.2-5.0); BILIRUBIN, TOTAL 0.4 mg/dL (0.0-1.4)
[2020-04-15 08:00] VITALS: BP 98/61
--- NOTE | 2020-04-15 08:20 | NUR ---
PT IS SITTING IN THE SIDE OF THE BED. ASSESSMENT DONE. PT IS A&O X3. PT DENIES PAIN AT THIS TIME. NO S/S OF DISTRESS NOTED. PT ACCU WAS RECHECK 90. TELE IN PLACE. O2 AT 2L VIA NC. CALL LIGHT IN REACH. NOTIFIED VERN DIETZ RE: PT ACCU WAS 46 THEN WAS RECHECK IS 90.
[2020-04-15 10:30] VITALS: BP 105/72
--- NOTE | 2020-04-15 12:00 | NUR ---
PT IS SITTING IN THE SIDE OF THE BED. PT STATED THAT THE ZOFRAN HELPED. PT IS EATING HIS LUNCH WITH NO S/S OF DISTRESS NOTED. CALL LIGHT IN REACH.
[2020-04-15 15:00] VITALS: BP 122/83
--- NOTE | 2020-04-15 18:51 | NUR ---
NOTIFIED DR. WHITE RE: PT HAD ONLY VOID 200ML IN MY SHIFT. DID A BLADDER SCAN NOTED 132ML URINE. NO S/S DISTRESS NOTED WITH PT. STATED WILL REASSESS IN THE AM.
[2020-04-15 19:00] VITALS: BP 126/91
--- NOTE | 2020-04-15 19:00 | NUR ---
RECEIVED REPORT FROM NURSE NORAH, PATIENT IS SITTING IN BED WATCHING TV, DENIES PAIN AT THIS TIME, BREATHING EVEN UNLABORED WITH O2 @ 2LPM VIA NC CALL LIGHT AT REACH.
--- NOTE | 2020-04-15 21:00 | NUR ---
PATIENT ALERT ORIENTED, ABLE TO MAKE NEEDS KNOWN, WITH O2 @ 2LPM VIA NC BREATHING EVEN UNLABORED, DENIES PAIN OR DISCOMFORTS, REQUESTED SNACKS, MEDICATIONS GIVEN LBM 04/15, NOTED TO HAVE PITTING EDEMA +1 ON BLE, CALL LIGHT AT REACH.
[2020-04-16] VITALS: BP 116/73
--- NOTE | 2020-04-16 00:20 | NUR ---
PATIENT ASSISTED TO BED, DENIES PAIN AND DISCOMFORTS BREATHING SHALLOW UNLABORED, REMAINS ON O2 @ 2LPM VIA NC, CALL LIGHT AT REACH.
[2020-04-16 04:00] VITALS: BP 109/74
--- NOTE | 2020-04-16 04:42 | NUR ---
PATIENT WEIGHED AT THIS TIME, AND ASSISTED BACK IN BED, REMAINS ON O2 @ 2LPM, NOT IN DISTRESS CALL LIGHT AT REACH.
[2020-04-16 05:04] LABS: HEMATOCRIT 28.4 % (39.0-50.0); HEMOGLOBIN 8.4 g/dl (14.0-18.0); MEAN CELL VOLUME 85.5 fL CALC (80.0-100.0); MEAN CORPUSCULAR HGB 25.3 pG CALC (26.0-32.0); MEAN CORPUSCULAR HGB CONC 29.6 g/dL CAL (32.0-36.0); RED BLOOD COUNT 3.32 mill/uL (4.70-6.10); RED CELL DISTRI WIDTH 15.6 % (11.5-15.5)
[2020-04-16 05:26] LABS: ALBUMIN 2.8 g/dL (3.2-5.0); BILIRUBIN, TOTAL 0.3 mg/dL (0.0-1.4); CREATININE 3.1 mg/dL (0.7-1.3); POTASSIUM 4.8 mmol/l (3.5-5.1); TOTAL PROTEIN 5.2 g/dL (6.3-8.2)
--- NOTE | 2020-04-16 07:35 | NUR ---
PT note Patient is screened for PT intervention and is felt he would benefit fromt his and wound care consult
[2020-04-16 07:51] VITALS: BP 118/78
--- NOTE | 2020-04-16 07:51 | NUR ---
PT SITTING ON THE SIDE OF THE BED. A&O X3. NO DISTRESS NOTED. O2 VIA NC @ 2L IN PLACE. CRACKLES HEARD TO BILATERAL VIOLET BASES. PT DENIES ANY PAIN AT THIS TIME. EDEMA NOTED TO BLE. NO OTHER NEEDS AT THIS TIME. ASSESSMENT COMPLETED. DISCUSSED POC. CALL LIGHT IN REACH. CONTINUE TO MONITOR.
[2020-04-16] MEDS ORDERED: FUROSEMIDE20 MG PO (09:27)
[2020-04-16] MEDS ORDERED: ZPAK PO (10:10)
[2020-04-16 11:20] VITALS: BP 98/67
--- NOTE | 2020-04-16 13:41 | NUR ---
Discharge instructions given to pt and daughter Saloni. Patient and daughter verbalize understanding of same. Discharged in stable condition via wheelchair to home accompanied by staff. All belongings sent with pt along with medication scripts.
== END 2020-04-16 13:41 | disposition home or self-care (01) | DRG 291 ==
LOC: ED 20:05 → ED-I 21:22 → ED 21:41 → MS2 21:42
PROVIDERS: Emergency Medicine; Nurse Practitioner Family; ADMIT Internal Medicine; ATTEND Internal Medicine
DX: I13.0 Hypertensive heart and chronic kidney disease with heart failure and stage 1 through stage 4 chronic kidney disease, or unspecified chronic kidney disease (principal); I50.23 Acute on chronic systolic (congestive) heart failure; J18.9 Pneumonia, unspecified organism; J96.21 Acute and chronic respiratory failure with hypoxia; N17.9 Acute kidney failure, unspecified; J44.0 Chronic obstructive pulmonary disease with (acute) lower respiratory infection; N18.4 Chronic kidney disease, stage 4 (severe); D63.1 Anemia in chronic kidney disease; E11.22 Type 2 diabetes mellitus with diabetic chronic kidney disease; I25.10 Atherosclerotic heart disease of native coronary artery without angina pectoris; I95.9 Hypotension, unspecified; E86.9 Volume depletion, unspecified; E11.51 Type 2 diabetes mellitus with diabetic peripheral angiopathy without gangrene; E03.9 Hypothyroidism, unspecified; E11.42 Type 2 diabetes mellitus with diabetic polyneuropathy; E78.5 Hyperlipidemia, unspecified; M10.9 Gout, unspecified; I25.2 Old myocardial infarction; Z79.4 Long term (current) use of insulin; Z89.432 Acquired absence of left foot; Z95.820 Peripheral vascular angioplasty status with implants and grafts; Z87.891 Personal history of nicotine dependence; Z95.5 Presence of coronary angioplasty implant and graft; Z99.81 Dependence on supplemental oxygen; Z20.828 Contact with and (suspected) exposure to other viral communicable diseases
CPT/HCPCS: G0378; J1650; J3370